=== PATIENT | male | born 1980 | race Caucasian/White ===

== ENCOUNTER 2016-12-21 15:00 | Emergency (ER) | payer BC ==
[2016-12-21 15:07] VITALS: BP 111/66; PULSE 55; TEMP 98.3; BMI 26.6
--- NOTE | 2016-12-21 15:26 | PDOC ---
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 Describes the pain as sharp and feels like muscle with 3/10 severity on original onset. No exacerbating or relieving symptoms. He did not try any medications or heat for this pain. Denies fevers, chills, nausea, vomiting, diarrhea, decreased appetite , or true abdominal pain. Of note he has a baseline swallowing dysfunction for any solid foods that is presumed to be psychological. 12/21/16 15:27 Past History - Past Medical History Allergies/Adverse Reactions: Allergies Allergy/AdvReac Type Severity Reaction Status Date / Time No Known Allergies Allergy Verified 12/21/16 15:04 Home Medications: Ambulatory Orders Ibuprofen [Motrin -] 400 mg PO TID PRN #45 tablet 12/21/16 CVA: Yes (traumatic brain injury) GI Disorders: Yes - Surgical History Neurologic Surgery: Yes (2 craniectomy) - Reproductive History Testicular CA: No Hx Transurethral Resection: No Testicular Surgery: No Testicular Torsion: No - Immunization History Immunization Up to Date: Yes - Suicide/Smoking/Psychosocial Hx Smoking History: Never smoked Have you smoked in the past 12 months: No Hx Alcohol Use: No Substance Use Type: None Hx Substance Use Treatment: No Review of Systems - Review of Systems Constitutional: No: Chills, Fever, Loss of Appetite HEENTM: No: Blurred Vision, Tearing, Recent change in vision Respiratory: No: Cough, Shortness of Breath, Stridor, Wheezing, Productive cough Cardiac (ROS): No: See HPI, Edema ABD/GI: No: Abdominal Distended, Constipated, Diarrhea, Nausea, Vomiting : No: Burning, Dysuria, Discharge Musculoskeletal: No: Back Pain Integumentary: No: Lesions, Lumps Neurological: Yes: Headache *Physical Exam - Vital Signs Last Vital Signs Temp Pulse Resp BP Pulse Ox 98.3 F 55 L 18 111/66 100 12/21/16 15:04 12/21/16 15:04 12/21/16 15:04 12/21/16 15:04 12/21/16 15:04 - Physical Exam General Appearance: Yes: Nourished, Appropriately Dressed. No: Apparent Distress HEENT: positive: EOMI, PAO, Normal ENT Inspection. negative: Normal Voice ( Slightly muffled voice per his baseline.) Neck: positive: Normal Thyroid, Supple. negative: Tender, Trachea midline, Rigid Respiratory/Chest: positive: Lungs Clear, Normal Breath Sounds. negative: Chest Tender, Respiratory Distress Cardiovascular: positive: Regular Rhythm, Regular Rate, S1, S2. negative: Edema , JVD, Murmur Gastrointestinal/Abdominal: positive: Normal Bowel Sounds, Flat, Soft. negative : Tender Male Genitalia: positive: normal genitalia, other (No inguinal lesion or tenderness to palpation. No pain with passive or active motion at the right hip. ). negative: discharge, inguinal hernia, hernia Musculoskeletal: positive: Normal Inspection Extremity: positive: Normal Capillary Refill, Normal Inspection, Normal Range of Motion Integumentary: positive: Normal Color, Dry Neurologic: positive: Fully Oriented, Alert, Normal Mood/Affect, Normal Response , Other Medical Decision Making - Medical Decision Making 36 year old male with history of TBI presenting with right groin pain that is not signficant for TTP or deformity on exam. UA clear and pain better after 60 toradol IM. Will DC patietn home with ibuprofen. 12/21/16 16:49 12/21/16 18:36 *DC/Admit/Observation/Transfer Diagnosis at time of Disposition: Right inguinal pain - Discharge Dispostion Disposition: HOME Condition at time of disposition: Improved Admit: No - Prescriptions Prescriptions: Ibuprofen [Motrin -] 400 mg PO TID PRN #45 tablet PRN Reason: Pain - Patient Instructions Additional Instructions: We saw you for pain in your groin. We don't think you have any infection or hernia. Please take ibuprofen up to twice a day if you have pain. Please follow up with your PCP if needed.
--- NOTE | 2016-12-21 15:40 | PDOC ---
Attending Attestation - Resident Resident Name: Fernanda Soni
[2016-12-21 16:46] LABS: URINE APPEARANCE CLEAR; URINE BILIRUBIN NEGATIVE (NEGATIVE); URINE BLOOD NEGATIVE (NEGATIVE); URINE COLOR STRAW; URINE GLUCOSE (UA) NEGATIVE (NEGATIVE); URINE KETONE NEGATIVE (NEGATIVE); URINE LEUK ESTERASE NEGATIVE (NEGATIVE); URINE NITRITE NEGATIVE (NEGATIVE); URINE PROTEIN NEGATIVE (NEGATIVE); URINE UROBILINOGEN NEGATIVE mg/dL (0.2-1.0)
[2016-12-21] MEDS ORDERED: KETOROLAC TROMETHAMINE 60 MG/2 ML VIAL IM ONE (17:06)
[2016-12-21] MEDS ORDERED: KETOROLAC TROMETHAMINE 60 MG/2 ML VIAL ONE (17:07)
== END 2016-12-21 18:49 | disposition home or self-care (01) ==
LOC: JER 15:00
PROC: 3E0233Z Introduction of Anti-inflammatory into Muscle, Percutaneous Approach (ICD-10-PCS; principal; 2016-12-21)
DX: R10.31 Right lower quadrant pain (principal); Z87.820 Personal history of traumatic brain injury
CPT/HCPCS: 81003; 87086; 99281-25

== ENCOUNTER 2017-07-23 22:04 | Emergency (ER) | payer BC ==
[2017-07-23 22:26] VITALS: BP 111/66; PULSE 85; TEMP 98.5; BMI 26.1
--- NOTE | 2017-07-23 23:08 | PDOC ---
History of Present Illness - General Chief Complaint: Foreign Body (FB) Stated Complaint: FOREIGN OBJECT STUCK IN THROAT Time Seen by Provider: 07/23/17 23:01 History Source: Patient - History of Present Illness Initial Comments: 07/23/17 23:45 37 year old male with dysphagia reports that he drank guava juice unsure of aspiration. reports since drinking juice he has been coughing with mucous production. denies fever Past History - Past Medical History Allergies/Adverse Reactions: Allergies Allergy/AdvReac Type Severity Reaction Status Date / Time No Known Allergies Allergy Verified 07/23/17 22:26 Home Medications: Ambulatory Orders Ibuprofen [Motrin -] 400 mg PO TID PRN #45 tablet 12/21/16 CVA: Yes (traumatic brain injury) COPD: No GI Disorders: Yes (dysphagia) Seizures: Yes - Surgical History Neurologic Surgery: Yes (2 craniectomy) - Reproductive History Testicular CA: No Hx Transurethral Resection: No Testicular Surgery: No Testicular Torsion: No - Immunization History Immunization Up to Date: Yes - Suicide/Smoking/Psychosocial Hx Smoking History: Never smoked Have you smoked in the past 12 months: No Information on smoking cessation initiated: No Hx Alcohol Use: No Drug/Substance Use Hx: No Substance Use Type: None Hx Substance Use Treatment: No Review of Systems - Review of Systems Able to Perform ROS?: Yes Is the patient limited Estonian proficient: No Constitutional: No: Symptoms Reported, See HPI, Chills, Diaphoresis, Fever, Loss of Appetite, Malaise, Night Sweats, Weakness, Weight Stable, Unintentional Wgt. Loss, Unexplained wgt Loss, Other HEENTM: No: Symptoms Reported, See HPI, Eye Pain, Blurred Vision, Tearing, Recent change in vision, Double Vision, Cataracts, Ear Pain, Ocular Prothesis, Ear Discharge, Nose Pain, Nose Congestion, Tinnitus, Nose Bleeding, Hearing Loss , Throat Pain, Throat Swelling, Mouth Pain, Dental Problems, Difficulty Swallowing, Mouth Swelling, Other Respiratory: Yes: Cough, Productive cough *Physical Exam - Vital Signs Last Vital Signs Temp Pulse Resp BP Pulse Ox 98.5 F 85 17 111/66 100 07/23/17 22:22 07/23/17 22:22 07/23/17 22:22 07/23/17 22:22 07/23/17 22:22 - Physical Exam General Appearance: Yes: Appropriately Dressed Respiratory/Chest: positive: Lungs Clear, Normal Breath Sounds Cardiovascular: positive: Regular Rhythm, Regular Rate Gastrointestinal/Abdominal: positive: Normal Bowel Sounds, Soft Musculoskeletal: positive: Normal Inspection Extremity: positive: Normal Capillary Refill, Normal Inspection, Normal Range of Motion Integumentary: positive: Normal Color, Dry, Warm Neurologic: positive: Fully Oriented, Alert ED Treatment Course - RADIOLOGY Chest X-Ray Result: No Infiltrates Medical Decision Making - Medical Decision Making chest congestion r/o aspiration. patient history of dysphagia P: CHEST xray CT chest PMD follow up discussed with patient. *DC/Admit/Observation/Transfer Diagnosis at time of Disposition: Dysphagia Qualifiers: Dysphagia type: unspecified Qualified Code(s): R13.10 - Dysphagia, unspecified - Discharge Dispostion Disposition: HOME - Referrals - Patient Instructions Printed Discharge Instructions: DI for Cough -- Adult Additional Instructions: follow up with your doctor. return to the ER if symptoms worsen. - Post Discharge Activity
--- NOTE | 2017-07-23 23:13 | PDOC ---
*Physical Exam - Vital Signs Last Vital Signs Temp Pulse Resp BP Pulse Ox 98.5 F 85 17 111/66 100 07/23/17 22:22 07/23/17 22:22 07/23/17 22:22 07/23/17 22:22 07/23/17 22:22 Medical Decision Making - Medical Decision Making 07/23/17 23:12 agree with care from TERRELL Yuan *DC/Admit/Observation/Transfer Diagnosis at time of Disposition: Dysphagia - Discharge Dispostion Disposition: HOME - Referrals - Patient Instructions Printed Discharge Instructions: DI for Cough -- Adult Additional Instructions: follow up with your doctor. return to the ER if symptoms worsen. - Post Discharge Activity
== END 2017-07-24 01:56 | disposition home or self-care (01) ==
LOC: JER 22:04
DX: R13.10 Dysphagia, unspecified (principal); Z86.73 Personal history of transient ischemic attack (TIA), and cerebral infarction without residual deficits
CPT/HCPCS: 71046-TC-FY; 71250-TC; 99281-25

== ENCOUNTER 2017-11-13 02:08 | Emergency (ER) | payer BC ==
[2017-11-13 02:34] VITALS: BP 112/62; PULSE 83; TEMP 98; BMI 25.0
[2017-11-13] MEDS ORDERED: IBUPROFEN 100 MG/5 ML UNIT DOSE CUPS PO ONE (02:52)
[2017-11-13] MEDS ORDERED: guaiFENesin/D-METHORPHAN HB 10 ML UNIT-DOSE CUPS PO ONE (02:53)
--- NOTE | 2017-11-13 02:54 | PDOC ---
History of Present Illness - General Chief Complaint: Choking Sensation Stated Complaint: THROAT PROBLEM Time Seen by Provider: 11/13/17 02:31 History Source: Patient Exam Limitations: No Limitations - History of Present Illness Initial Comments: 11/13/17 03:12 Patient is a 37 -year-old male with past medical history of TBI, seizure, who presents to the emergency department today with a choking sensation. Patient states that he feels like he cannot swallow as he has to much mucus. He also admits to a headache. States that he is unable to swallow pills or have solid food for the past 3 years status post seizure. He states he is afraid he is having another seizure. He states he cannot sleep because he is coughing up clear mucus. Denies fevers, chills, shortness of breath, difficulty breathing, chest pain, nausea, vomiting and diarrhea, weakness, dizziness and lightheadedness. Past History - Travel Traveled outside of the country in the last 30 days: No Close contact w/someone who was outside of country & ill: No - Past Medical History Allergies/Adverse Reactions: Allergies Allergy/AdvReac Type Severity Reaction Status Date / Time No Known Allergies Allergy Verified 11/13/17 02:30 Home Medications: Ambulatory Orders Levetiracetam 500 mg PO BID 10/06/17 Guaifenesin Dm [Robitussin Dm -] 10 ml PO Q8H PRN #50 cup 11/13/17 Ibuprofen [Children's Ibuprofen] 600 mg PO Q8H #300 ml 11/13/17 CVA: Yes (traumatic brain injury) COPD: No GI Disorders: Yes (dysphagia) Seizures: Yes - Surgical History Neurologic Surgery: Yes (2 craniectomy) - Reproductive History Testicular CA: No Hx Transurethral Resection: No Testicular Surgery: No Testicular Torsion: No - Immunization History Immunization Up to Date: Yes - Suicide/Smoking/Psychosocial Hx Smoking History: Never smoked Have you smoked in the past 12 months: No Hx Alcohol Use: No Drug/Substance Use Hx: No Substance Use Type: None Hx Substance Use Treatment: No Review of Systems - Review of Systems Able to Perform ROS?: Yes Comments:: 11/13/17 03:09 CONSTITUTIONAL: Absent: fever, chills, diaphoresis, generalized weakness, malaise, loss of appetite HEENT: Present: difficulty swallowing, excess mucous Absent: rhinorrhea, nasal congestion, throat pain, throat swelling, mouth swelling, ear pain, eye pain, visual Changes CARDIOVASCULAR: Absent: chest pain, loss of consciousness, palpitations, irregular heart rate, peripheral edema RESPIRATORY: Absent: cough, shortness of breath, dyspnea with exertion, orthopnea, wheezing, stridor, hemoptysis GASTROINTESTINAL: Absent: abdominal pain, abdominal distension, nausea, vomiting, diarrhea, constipation, melena, hematochezia GENITOURINARY: Absent: dysuria, frequency, urgency, hesitancy, hematuria, flank pain, genital pain MUSCULOSKELETAL: Absent: myalgia, arthralgia, joint swelling SKIN: Absent: rash, itching, pallor HEMATOLOGIC/IMMUNOLOGIC: Absent: easy bleeding, easy bruising, lymphadenopathy, frequent infections ENDOCRINE: Absent: unexplained weight gain, unexplained weight loss, heat intolerance, cold intolerance NEUROLOGIC: Present: headache Absent: focal weakness or paresthesias, dizziness, unsteady gait, seizure, mental status changes, bladder or bowel incontinence PSYCHIATRIC: Absent: anxiety, depression, suicidal or homicidal ideation, hallucinations. Is the patient limited Vietnamese proficient: No *Physical Exam - Vital Signs Last Vital Signs Temp Pulse Resp BP Pulse Ox 98 F 83 18 112/62 99 11/13/17 02:31 11/13/17 02:31 11/13/17 02:31 11/13/17 02:31 11/13/17 02:31 - Physical Exam Comments: 11/13/17 03:10 GENERAL: Well developed, well nourished. Awake and alert. No acute distress. HEENT: Normocephalic, atraumatic. PERRLA, EOMI. No conjunctival pallor. Sclera are non- icteric. Moist mucous membranes. Oropharynx is clear. NECK: Supple. Full ROM. No JVD. Carotid pulses 2+ and symmetric, without bruits. No thyromegaly. No lymphadenopathy. CARDIOVASCULAR: Regular rate and rhythm. No murmurs, rubs, or gallops. Distal pulses are 2+ and symmetric. PULMONARY: No evidence of respiratory distress. Lungs clear to auscultation bilaterally. No wheezing, rales or rhonchi. ABDOMINAL: Soft. Non-tender. Non-distended. No rebound or guarding. No organomegaly. Normoactive bowel sounds. MUSCULOSKELETAL Normal range of motion at all joints. No bony deformities or tenderness. No CVA tenderness. EXTREMITIES: No cyanosis. No clubbing. No edema. No calf tenderness. SKIN: Warm and dry. Normal capillary refill. No rashes. No jaundice. NEUROLOGICAL: Alert, awake, appropriate. Cranial nerves 2-12 intact. No deficits to light touch and temperature in face, upper extremities and lower extremities. No motor deficits in the in face, upper extremities and lower extremities. Normoreflexic in the upper and lower extremities. Normal speech. Toes are down- going bilaterally. Gait is normal without ataxia. PSYCHIATRIC: Cooperative. Good eye contact. Appropriate mood and affect. ED Treatment Course - LABORATORY CBC & Chemistry Diagram: 11/13/17 04:05 11/13/17 04:05 Medical Decision Making - Medical Decision Making 11/13/17 03:12 Patient is a 37-year-old male with past medical history of TBI, seizure on Keppra, who presents to the emergency department today for access mucus and difficulty swallowing. -airway is clear and maintained with no evidence of blockage at this time -mild post nasal drip noted, uvula midline -unlikely food impaction at this time as patient does not eat solid foods -Pt with increased congestion -motrin, robitussin, neck soft tissue x-ray ordered. 11/13/17 03:44 -neck soft tissue with possible swelling to the epiglottis/concerning for retropharyngeal abscess. -labs, ct neck with contrast 11/13/17 06:17 -CT shows no acute process with the epiglottis, jaiden/nasopharynx, parapharyngial spaces. -Pt reports improvement with robitussin -possible viral etiology? -dc home with ENT follow up. Return precautions given. pt and mother understand all dc instructions and all questions were answered. *DC/Admit/Observation/Transfer Diagnosis at time of Disposition: Choking sensation - Discharge Dispostion Disposition: HOME Condition at time of disposition: Stable Decision to Admit order: No - Referrals Referrals: Nikhil Lemus MD [Staff Physician] - - Patient Instructions Printed Discharge Instructions: DI for Oropharyngeal Dysphagia Additional Instructions: Your CAT scan was normal today. Please take the Robitussin twice a day as needed for your congestion. Please follow-up with ears nose throat doctor. Referral has been provided for you. Return to the emergency department if you have worsening symptoms or any new/ concerning symptoms. - Post Discharge Activity Forms/Work/School Notes: Back to Work
[2017-11-13] MEDS ORDERED: guaiFENesin 200 MG/10 ML 10 ML UNIT-DOSE CUPS ONE (04:12)
[2017-11-13] MEDS ORDERED: IBUPROFEN 100 MG/5 ML UNIT DOSE CUPS ONE (04:13)
[2017-11-13 04:18] LABS: BASO % 0.4 % (0-2.0); EOS % 2.9 % (0-4.5); HEMATOCRIT 36.6 % (35.4-49); MCH 32.9 pg (25.7-33.7); MCHC 35.4 g/dl (32.0-35.9); MEAN CELL VOLUME 93.1 fl (80-96); MONO % 9.2 % (3.8-10.2); NEUT % 62.5 % (42.8-82.8); PLATELET COUNT 246 K/MM3 (134-434); RBC 3.93 M/mm3 (4.00-5.60); RDW 12.7 % (11.9-15.9); WHITE BLOOD COUNT 5.4 K/mm3 (4.0-10.0)
[2017-11-13 04:44] LABS: ANION GAP 7 MMOL/L (8-16); BLOOD UREA NITROGEN 4 mg/dL (7-18); CHLORIDE 100 mmol/L (98-107); CO2 30 mmol/L (21-32); CREATININE 0.5 mg/dL (0.7-1.3); GLUCOSE,RANDOM 92 mg/dL (74-106); POTASSIUM 3.6 mmol/L (3.5-5.1); SODIUM 137 mmol/L (136-145)
[2017-11-13] MEDS ORDERED: DEXAMETHASONE SOD PHOSPHATE 10 MG/1 ML VIAL ONE (06:20)
[2017-11-13] MEDS ORDERED: DEXAMETHASONE SOD PHOSPHATE 10 MG/1 ML VIAL IVPUSH ONE (06:23)
== END 2017-11-13 06:26 | disposition home or self-care (01) ==
LOC: JER 02:08
PROC: 3E033GC Introduction of Other Therapeutic Substance into Peripheral Vein, Percutaneous Approach (ICD-10-PCS; principal; 2017-11-13)
DX: R09.89 Other specified symptoms and signs involving the circulatory and respiratory systems (principal)
CPT/HCPCS: 36415; 70360-TC-FY; 70491-TC; 80048; 85025; 99282-25; J1100

== ENCOUNTER 2018-06-06 17:38 | Emergency (ER) | payer BC ==
[2018-06-06 18:05] VITALS: BP 110/58; PULSE 74; TEMP 98.7; BMI 21.6
--- NOTE | 2018-06-06 20:10 | PDOC ---
Attending Attestation - HPI HPI: 06/06/18 21:19 The patient is a 38 year old male, with a significant past medical history of TBI (s/p craniotomy and seizure 2 years ago), RENITA, and dysphagia, who presents to the emergency department with, a choking sensation. Patient notes similar episodes in the past at which time he followed with ENT, Dr. Lemus and received a negative swallow study. He denies any recent fevers, chills, headache or dizziness. He denies any recent nausea, vomit, diarrhea or constipation. He denies any recent chest pain or shortness of breath. He denies any recent dysuria, frequency, urgency or hematuria. Allergies: NKDA <Cristian Hitchcock - Last Filed: 06/06/18 21:19> - Resident Resident Name: Kaleigh Anglin - ED Attending Attestation I have performed the following: I have examined & evaluated the patient, The case was reviewed & discussed with the resident, I agree w/resident's findings & plan, Exceptions are as noted - Physicial Exam PE: GENERAL: Awake, alert, and fully oriented, in no acute distress HEAD: No signs of trauma EYES: PERRLA, EOMI, sclera anicteric, conjunctiva clear ENT: Auricles normal inspection, hearing grossly normal, nares patent, oropharynx erythematous without exudates. Moist mucosa NECK: Normal ROM, supple, no lymphadenopathy, JVD, or masses LUNGS: Breath sounds equal, clear to auscultation bilaterally. No wheezes, and no crackles HEART: Regular rate and rhythm, normal S1 and S2, no murmurs, rubs or gallops ABDOMEN: Soft, nontender, normoactive bowel sounds. No guarding, no rebound. No masses EXTREMITIES: Normal range of motion, no edema. No clubbing or cyanosis. No cords, erythema, or tenderness NEUROLOGICAL: Cranial nerves II through XII grossly intact. Normal speech, normal gait. Motor and sensation intact SKIN: Warm, Dry, normal turgor, no rashes or lesions noted. - Medical Decision Making XR with normal epiglottis. Epiglottitis unlikely given clinical presentation. Stable for DC home. <Kaleigh Cotton - Last Filed: 06/06/18 21:40> Attestations - Attestations 06/06/18 21:20 Documentation prepared by Cristian Hitchcock, acting as medical sales specialist for Kaleigh Cotton MD. <Cristian Hitchcock - Last Filed: 06/06/18 21:19>
[2018-06-06] MEDS ORDERED: IBUPROFEN 100 MG/5 ML UNIT DOSE CUPS PO ONE (20:19)
[2018-06-06] MEDS ORDERED: diphenhydrAMINE HCL 12.5 MG/5 ML UNIT-DOSE CUPS PO ONE (20:20)
[2018-06-06] MEDS ORDERED: MAG HYDROX/AL HYDROX/SIMETH 30 ML UNIT-DOSE CUP PO ONE (20:20)
[2018-06-06] MEDS ORDERED: LIDOCAINE VISCOUS 2% ORAL/TOP 20 ML UNIT-DOSE CUP MM ONE (20:20)
[2018-06-06] MEDS ORDERED: IBUPROFEN 100 MG/5 ML UNIT DOSE CUPS ONE (20:21)
[2018-06-06] MEDS ORDERED: LIDOCAINE VISCOUS 2% ORAL/TOP 20 ML UNIT-DOSE CUP ONE (20:24)
[2018-06-06] MEDS ORDERED: diphenhydrAMINE HCL 12.5 MG/5 ML BULK BOTTLE ONE (20:24)
[2018-06-06] MEDS ORDERED: MAG HYDROX/AL HYDROX/SIMETH 30 ML UNIT-DOSE CUP ONE (20:25)
--- NOTE | 2018-06-06 20:25 | PDOC ---
History of Present Illness - General Chief Complaint: Choking Sensation Stated Complaint: COUGH/CHOCKING SENSATIONS Time Seen by Provider: 06/06/18 19:33 - History of Present Illness Initial Comments: 38yo M with PMH of TBI s/p craniotomy, seizure 2 years ago on Keppra 500 BID, RENITA, and dysphagia presenting with sensation of something stuck in his throat. Patient has had problems with dysphagia for about a year and a half. Per chart review, he has been in our ED three times in the last year with similar complaint. Modified barium swallow study in December 2017 had some suspicion for laryngopharyngeal reflux with globus sensation and suggested a psychologic component to dysphagia. Though it has been recommended for him to transition to eating pureed and even soft foods, patient has adhered to a liquid diet. Patient states he was at [employer] today when he swallowed some soup broth and felt he may have swallowed an herb. He felt some discomfort which worsened when he went home. He coughed and had mucus secretions, along with some nausea and headache. Patient denies sore throat or dysphagia. He has been able to swallow liquids at home without difficulty. However, he still feels discomfort and is worried that he may have aspirated. Patient mentions he had been given some medicine (he does not know what) by his physician at [facility] (he does not remember the name of the doctor) to try to help him transition to solids, but he has not tried it yet. Denies fevers, chills, chest pain, or shortness of breath. Past History - Past Medical History Allergies/Adverse Reactions: Allergies Allergy/AdvReac Type Severity Reaction Status Date / Time No Known Allergies Allergy Verified 06/06/18 18:05 Home Medications: Ambulatory Orders Levetiracetam 500 mg PO BID 10/06/17 Guaifenesin Dm [Robitussin Dm -] 10 ml PO Q8H PRN #50 cup 11/13/17 Ibuprofen [Children's Ibuprofen] 600 mg PO Q8H #300 ml 11/13/17 CVA: Yes (traumatic brain injury) COPD: No GI Disorders: Yes (dysphagia) Seizures: Yes - Surgical History Neurologic Surgery: Yes (2 craniectomy) - Reproductive History Testicular CA: No Hx Transurethral Resection: No Testicular Surgery: No Testicular Torsion: No - Immunization History Immunization Up to Date: Yes - Suicide/Smoking/Psychosocial Hx Smoking History: Never smoked Have you smoked in the past 12 months: No Hx Alcohol Use: No Drug/Substance Use Hx: No Substance Use Type: None Hx Substance Use Treatment: No Review of Systems - Review of Systems Comments:: Constitutional: no fever, no chills HEENT: no throat pain, +globus sensation Respiratory: no cough, no shortness of breath Gastrointestinal: no abdominal pain, +nausea Genitourinary: no dysuria, no frequency Musculoskeletal: no myalgia, no arthralgia Skin: no rash, no itching Neurologic: +headache, no dizziness *Physical Exam - Vital Signs Last Vital Signs Temp Pulse Resp BP Pulse Ox 98.7 F 74 18 110/58 L 97 06/06/18 18:02 06/06/18 18:02 06/06/18 18:02 06/06/18 18:02 06/06/18 18:02 - Physical Exam Comments: General: Awake, alert, and fully oriented, in no acute distress, pleasant Head: No signs of trauma Eyes: EOMI, sclera anicteric ENT: Moist mucus membranes, uvula midline, no masses/abscess in throat appreciated Neck: Normal ROM, supple Lungs: Lungs clear, Normal breath sounds Cardio: Regular rhythm, S1 and S2 present Abdomen: Soft, nontender. No guarding, no rebound, no masses Extremities: Normal range of motion, Distal pulses present SKIN: Warm, Dry, normal turgor Neurologic: Cranial nerves II through XII grossly intact. Normal speech Moderate Sedation - Procedure Monitoring Vital Signs: Procedure Monitoring Vital Signs Temperature 98.7 F 06/06/18 18:02 Pulse Rate 74 06/06/18 18:02 Respiratory Rate 18 06/06/18 18:02 Blood Pressure 110/58 L 06/06/18 18:02 O2 Sat by Pulse Oximetry (%) 97 06/06/18 18:02 ED Treatment Course - RADIOLOGY Radiology Studies Ordered: Category Date Time Status CHEST PA & LAT [RAD] Stat Radiology 06/06/18 20:18 Ordered NECK SOFT TISSUE [RAD] Stat Radiology 06/06/18 20:18 Ordered Medical Decision Making - Medical Decision Making 38yo M with PMH of TBI s/p craniotomy, seizure 2 years ago on Keppra 500 BID, RENITA, and dysphagia presenting with sensation of something stuck in his throat. DDX including but not limited to globus sensation, transport dysphagia, esophageal stricture, foreign body Motrin 600 oral suspension for headache 5mL of equal parts of Diphenhydramine, viscous lidocaine, maalox Soft tissue neck radiograph PA/Lat Chest Will reassess 06/06/18 20:25 Patient says he still feels the discomfort, though it feels better Radiographs without acute pathology (my impression) 06/06/18 21:27 Presentation consistent with globus sensation and patient's previous episodes with dysphagia. He has been observed tolerating po liquid intake without choking or aspiration. Plan to discharge 06/06/18 21:32 *DC/Admit/Observation/Transfer Diagnosis at time of Disposition: Foreign body sensation in throat - Discharge Dispostion Disposition: HOME Condition at time of disposition: Stable - Referrals Referrals: Nikhil Lemus MD [Staff Physician] - - Patient Instructions Printed Discharge Instructions: DI for Esophageal Dysphagia Additional Instructions: You came to the ED for a foreign body sensation in your throat. Imaging of your neck and chest did not show acute pathology. Mixture of benadryl/viscous lidocaine/maalox: Swish and swallow 5mL no more than every four hours as needed for foreign body sensation You can take [id number] tylenol or motrin for your headache. Follow the instructions on the medication bottle. Follow-up with your ENT or primary care physician this week to discuss this ED visit and to further evaluate your headache. Your care is not complete until you do so. Call and make an appointment. Medical attention is required if: you experience persistent symptoms, severe headache, have a seizure, or have focal numbness or weakness. If you think you are having an emergency, call for emergency medical services or present to the emergency department right away - Post Discharge Activity
== END 2018-06-06 21:40 | disposition home or self-care (01) ==
LOC: JER 17:38
DX: R09.89 Other specified symptoms and signs involving the circulatory and respiratory systems (principal); Z87.820 Personal history of traumatic brain injury; R56.1 Post traumatic seizures; R13.10 Dysphagia, unspecified
CPT/HCPCS: 70360-TC-FY; 71046-TC-FY; 99282-25

== ENCOUNTER 2018-08-14 17:02 | Emergency (ER) | payer BC | END 2018-08-14 21:43 | disposition home or self-care (01) | LOC: JER 17:02 ==

== ENCOUNTER 2018-10-04 14:27 | Emergency (ER) | payer BC ==
--- NOTE | 2018-10-04 14:34 | PDOC ---
Rapid Medical Evaluation Chief Complaint: Headache Time Seen by Provider: 10/04/18 14:29 Medical Evaluation: Allergies Allergy/AdvReac Type Severity Reaction Status Date / Time No Known Allergies Allergy Verified 08/14/18 20:40 10/04/18 14:30 I have performed a brief in-person evaluation of this patient. The patient presents with a chief complaint of: h/o alcohol abuse presenting with complains of headache for 3 days. Patient report last alcohol intake was 4 days ago. Pt report mother in [place] had a bad dream about him, so he wants to be sure he is okay. Denies blurry vision, change in vision, SOB, palpitations, dizziness or light headedness. Pt report has been having excessive sweating for 3 days now Pertinent physical exam findings: A&O x 3 in NAD I have ordered the following: nothing The patient will proceed to the ED for further evaluation Discharge Disposition - Diagnosis Headache Qualifiers: Headache type: unspecified Headache chronicity pattern: acute headache Intractability: not intractable Qualified Code(s): R51 - Headache - Discharge Dispostion Condition at time of disposition: Stable - Referrals - Patient Instructions - Post Discharge Activity
[2018-10-04 14:40] VITALS: BP 108/68; PULSE 68; TEMP 98.6; BMI 28.3
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
== END 2018-10-04 16:45 | disposition home or self-care (01) ==
LOC: JERFT 14:27
DX: R51 Headache (principal)
CPT/HCPCS: 70450-TC; 99281-25

== ENCOUNTER 2018-11-22 18:41 | Emergency (ER) | payer BC ==
[2018-11-22 18:51] VITALS: TEMP 98.2; BMI 27.4
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
--- NOTE | 2018-11-22 20:05 | PDOC ---
History of Present Illness - General Chief Complaint: Alcohol intoxication Stated Complaint: ALCOHOL INTOXICATED Time Seen by Provider: 11/22/18 19:47 History Source: Patient Exam Limitations: No Limitations - History of Present Illness Initial Comments: 38 yo M with a hx of TBI 4 years ago s/p craniotomy with residual dysphagia ( liquids only), ETOH abuse, and seizures (1x seizure, currently on keppra) presents to the emergency department s/p found down at home. Per the mother, the fall was unwitnessed. He was found lying on the floor. Per the patient, he does not remember the fall. Denies current pain. Denies nausea, vomiting, headache, visual disturbance, chest pain, SOB, and lightheadedness/dizziness. States he had 1 beer "in the afternoon". Per the mother, he has binging episodes with alcohol but denies other substances. Currently knows his name but does not know the date and place which is unusual per the mother. Allergies: NKDA Shx: Refer to above Past History - Past Medical History Allergies/Adverse Reactions: Allergies Allergy/AdvReac Type Severity Reaction Status Date / Time No Known Allergies Allergy Verified 08/14/18 20:40 Home Medications: Ambulatory Orders Levetiracetam 500 mg PO BID 10/06/17 CVA: Yes (traumatic brain injury) COPD: No GI Disorders: Yes (dysphagia) Seizures: Yes - Surgical History Neurologic Surgery: Yes (2 craniectomy) - Reproductive History Testicular CA: No Hx Transurethral Resection: No Testicular Surgery: No Testicular Torsion: No - Immunization History Immunization Up to Date: Yes - Suicide/Smoking/Psychosocial Hx Smoking History: Never smoked Have you smoked in the past 12 months: No Information on smoking cessation initiated: No Hx Alcohol Use: Yes Drug/Substance Use Hx: No Substance Use Type: None Hx Substance Use Treatment: No *Physical Exam - Vital Signs Last Vital Signs Temp Pulse Resp BP Pulse Ox 98.2 F 86 18 95/62 98 11/22/18 18:42 11/22/18 18:42 11/22/18 18:42 11/22/18 18:42 11/22/18 18:42 ED Treatment Course - LABORATORY CBC & Chemistry Diagram: 11/22/18 20:03 11/22/18 20:03 - RADIOLOGY Radiology Studies Ordered: Category Date Time Status CERVICAL SPINE CT W/O CONTR [CT] Stat CT Scan 11/22/18 19:[address] WITHOUT CONTRAST [CT] Stat CT Scan 11/22/18 19:57 Ordered CHEST PA & LAT [RAD] Stat Radiology 11/22/18 19:57 Ordered *DC/Admit/Observation/Transfer Diagnosis at time of Disposition: Alcohol intoxication - Discharge Dispostion Disposition: HOME Decision to Admit order: No - Referrals Referrals: [facility] [place] [Provider Group] - Patient Instructions Printed Discharge Instructions: DI for Alcohol Abuse Additional Instructions: You were seen for alcohol intoxication. Please do not drink alcohol anymore. Your head ct does not show an acute process. Please return to the emergency department if you have worsening symptoms. Please see your primary medical doctor within 1 week after discharge for follow up care. Thank you. - Post Discharge Activity
[2018-11-22 20:35] LABS: BASO % 0.5 % (0-2.0); EOS % 1.4 % (0-4.5); HEMATOCRIT 35.8 % (35.4-49); HEMOGLOBIN 12.3 GM/dL (11.7-16.9); MCH 34.6 pg (25.7-33.7); MCHC 34.4 g/dl (32.0-35.9); MEAN CELL VOLUME 100.4 fl (80-96); MEAN PLT VOLUME 8.2 fl (7.5-11.1); MONO % 6.7 % (3.8-10.2); NEUT % 80.4 % (42.8-82.8); PLATELET COUNT 299 K/MM3 (134-434); RBC 3.56 M/mm3 (4.00-5.60); RDW 12.9 % (11.9-15.9); WHITE BLOOD COUNT 4.5 K/mm3 (4.0-10.0)
[2018-11-22 21:23] LABS: ALBUMIN 3.5 g/dl (3.4-5.0); BILIRUBIN,TOTAL 0.3 mg/dL (0.2-1); CALCIUM 8.1 mg/dL (8.5-10.1); CREATININE 0.4 mg/dL (0.55-1.3); POTASSIUM 3.4 mmol/L (3.5-5.1)
[2018-11-22 21:25] LABS: BLOOD UREA NITROGEN 1.3 mg/dL (7-18)
[2018-11-22 23:26] VITALS: BP 110/65; PULSE 80
--- NOTE | 2018-11-23 12:43 | EKG ---
Test Reason : Blood Pressure : / mmHG Vent. Rate : 078 BPM Atrial Rate : 078 BPM P-R Int : 120 ms QRS Dur : 092 ms QT Int : 372 ms P-R-T Axes : 021 058 055 degrees QTc Int : 424 ms POOR DATA QUALITY, INTERPRETATION MAY BE ADVERSELY AFFECTED NORMAL SINUS RHYTHM NORMAL ECG NO PREVIOUS ECGS AVAILABLE Confirmed by Tony Combs MD ([id number]) on 11/23/2018 12:43:08 PM Referred By: Confirmed By:Tony Combs MD
== END 2018-11-23 00:05 | disposition home or self-care (01) ==
LOC: JER 18:41
DX: F10.120 Alcohol abuse with intoxication, uncomplicated (principal); Y90.8 Blood alcohol level of 240 mg/100 ml or more; W19.XXXA Unspecified fall, initial encounter; Y93.89 Activity, other specified; Y92.038 Other place in apartment as the place of occurrence of the external cause; G40.909 Epilepsy, unspecified, not intractable, without status epilepticus; Z87.820 Personal history of traumatic brain injury
CPT/HCPCS: 36415; 70450-TC; 71046-TC-FY; 72125-TC; 80053; 80307; 82550; 82553; 84484; 85025; 93005; 93010; 99284-25

== ENCOUNTER 2018-12-13 00:34 | Emergency (ER) | payer BC ==
[2018-12-13 00:53] VITALS: BMI 26.5
[2018-12-13] MEDS ORDERED: FOLIC ACID INJECTION - 1 MG, THIAMINE HCL 100 MG, MULTIVIT INJECTION ADULT 10 ML in SOD... IVPB ONE (01:16)
--- NOTE | 2018-12-13 01:47 | PDOC ---
Attending Attestation - Resident Resident Name: AbbottMaynor - ED Attending Attestation I have performed the following: I have examined & evaluated the patient, The case was reviewed & discussed with the resident, I agree w/resident's findings & plan - HPI HPI: 12/13/18 01:57 Pt is here with alcohol intox; his mom is with him and she states that he is been drinking a lot alcohol recently - Physicial Exam PE: 12/13/18 05:12 Agree with resident exam. - Medical Decision Making 12/13/18 02:48 CXR portable clear; no sign of pneumonia or old aspiration. 12/13/18 05:12 Still slurring his speech 12/13/18 05:13 Pt will be signed out to the day team. Heart Score/ECG Review - ECG Intrepretation Rhythm: Regular Rhythm - [place]: Normal - P and CT Prominent R with upright T in V1 (true posterior KS): No Delta Wave(s) Present: No WPW: No - QRS Poor R Wave Progression: No Q Wave Present: No - ST and T Early Repolarization: No Non Specific ST-T Wave changes: No - ECG Impressions Normal ECG: Yes Non-specific ST Elevation: No Ischemic Changes: No
--- NOTE | 2018-12-13 02:01 | PDOC ---
History of Present Illness - General Chief Complaint: Alcohol intoxication Stated Complaint: INTOX Time Seen by Provider: 12/13/18 01:14 - History of Present Illness Initial Comments: 12/13/18 02:01 38 yo M with a hx of TBI 4 years ago s/p craniotomy with residual dysphagia ( liquids only), ETOH abuse, and seizures (1x seizure, currently on keppra) presents to the emergency department s/p alcohol intoxication. EMS was called by family when they found him difficult to arouse from his drunken stupor. After sufficient arousal, patient volunteers that he only drank 1 shot of tequila. He gently protests that "one of tequila is good for you". Mother at the bedside. Past History - Past Medical History Allergies/Adverse Reactions: Allergies Allergy/AdvReac Type Severity Reaction Status Date / Time No Known Allergies Allergy Verified 12/13/18 00:45 Home Medications: Ambulatory Orders Levetiracetam 500 mg PO BID 10/06/17 CVA: Yes (traumatic brain injury) COPD: No GI Disorders: Yes (dysphagia) Seizures: Yes - Surgical History Neurologic Surgery: Yes (2 craniectomy) - Reproductive History Testicular CA: No Hx Transurethral Resection: No Testicular Surgery: No Testicular Torsion: No - Immunization History Immunization Up to Date: Yes - Suicide/Smoking/Psychosocial Hx Smoking History: Never smoked Have you smoked in the past 12 months: No Hx Alcohol Use: Yes Drug/Substance Use Hx: No Substance Use Type: None Hx Substance Use Treatment: No Review of Systems - Review of Systems Able to Perform ROS?: No (intoxicated.) *Physical Exam - Vital Signs Last Vital Signs Temp Pulse Resp BP Pulse Ox 97.8 F 77 18 125/85 100 12/13/18 00:46 12/13/18 00:46 12/13/18 00:46 12/13/18 00:46 12/13/18 00:46 - Physical Exam General Appearance: Yes: Intoxicated HEENT: positive: EOMI, PAO, Normal ENT Inspection Respiratory/Chest: positive: Lungs Clear, Normal Breath Sounds. negative: Chest Tender, Respiratory Distress Cardiovascular: positive: Regular Rhythm, Regular Rate, S1, S2 Gastrointestinal/Abdominal: positive: Normal Bowel Sounds, Flat, Soft. negative : Tender Extremity: positive: Normal Capillary Refill, Normal Inspection, Normal Range of Motion Neurologic: positive: Disoriented (intoxicated.). negative: Alert ED Treatment Course - RADIOLOGY Radiology Studies Ordered: Category Date Time Status CXRPORT [CHEST X-RAY PORTABLE*] [RAD] Stat Radiology 12/13/18 01:17 Ordered Medical Decision Making - Medical Decision Making 12/13/18 03:40 38 yo M with a hx of TBI 4 years ago s/p craniotomy with residual dysphagia ( liquids only), ETOH abuse, and seizures (1x seizure, currently on keppra) presents to the emergency department s/p alcohol intoxication. Patient will sober up with banana bag and time. Will obtain keppra level. 12/13/18 05:41 Cxr negative, no aspiration pneumonia.
--- NOTE | 2018-12-13 07:42 | PDOC ---
*Physical Exam - Vital Signs Last Vital Signs Temp Pulse Resp BP Pulse Ox 98.1 F 72 15 113/68 100 12/13/18 05:04 12/13/18 05:04 12/13/18 05:04 12/13/18 05:04 12/13/18 05:04 Medical Decision Making - Medical Decision Making I saw this patient with Dr. Griffin. Patient was still displaying signs of minor intoxication but able to ambulate without assistance. Mother at bedside ensured that he was safe to go home with her. I relayed Keppra pending status to mother and discussed alcohol cessation with the patient/ family. Patient is going to take his morning dose of Keppra after discharge. He was ambulatory at discharge. 12/13/18 07:37 *DC/Admit/Observation/Transfer Diagnosis at time of Disposition: Alcohol intoxication Qualifiers: Complication of substance-induced condition: uncomplicated Qualified Code(s): F10.920 - Alcohol use, unspecified with intoxication, uncomplicated - Discharge Dispostion Disposition: HOME Condition at time of disposition: Stable Decision to Admit order: No - Referrals - Patient Instructions Printed Discharge Instructions: DI for Alcohol Abuse Additional Instructions: Please stop drinking alcohol! You will seize and your seizures could be really bad. Please take your medications as directed. Please see your PCP next week. Your [facility] neurologist can call to receive the results of your seizure medication level. Please return if you have any new or worsening symptoms. - Post Discharge Activity
[2018-12-13 07:57] VITALS: BP 125/77; PULSE 73; TEMP 98
--- NOTE | 2018-12-13 10:26 | EKG ---
Test Reason : Blood Pressure : / mmHG Vent. Rate : 070 BPM Atrial Rate : 070 BPM P-R Int : 134 ms QRS Dur : 086 ms QT Int : 370 ms P-R-T Axes : 040 072 055 degrees QTc Int : 399 ms NORMAL SINUS RHYTHM NORMAL ECG WHEN COMPARED WITH ECG OF 22-NOV-2018 21:07, NO SIGNIFICANT CHANGE WAS FOUND Confirmed by CASEY CAMPBELL MD ([id number]) on 12/13/2018 10:26:17 AM Referred By: Confirmed By:CASEY CAMPBELL MD
== END 2018-12-13 08:12 | disposition home or self-care (01) ==
LOC: JER 00:34
PROC: 3E033GC Introduction of Other Therapeutic Substance into Peripheral Vein, Percutaneous Approach (ICD-10-PCS; principal; 2018-12-13)
DX: F10.920 Alcohol use, unspecified with intoxication, uncomplicated (principal); G40.909 Epilepsy, unspecified, not intractable, without status epilepticus; Z87.820 Personal history of traumatic brain injury; I69.891 Dysphagia following other cerebrovascular disease
CPT/HCPCS: 36415; 71045-TC-FY; 80177; 93005; 93010; 99283-25; J7030

== ENCOUNTER 2021-09-20 21:04 | Inpatient (IN) | payer BC ==
[2021-09-20] MEDS ORDERED: ONDANSETRON 4 MG/2 ML VIAL IVPUSH ONE (23:12)
[2021-09-20] MEDS ORDERED: THIAMINE HCL 200 MG/2 ML VIAL IVPB ONE (23:12)
[2021-09-20] MEDS ORDERED: SODIUM CHLORIDE 1,000 ML IV STA (23:12)
[2021-09-20] MEDS ORDERED: diazePAM CARPU-JECT 10 MG/2 ML DISP.SYRIN IVPUSH ONE (23:15)
[2021-09-20] MEDS ORDERED: diazePAM CARPU-JECT 10 MG/2 ML DISP.SYRIN ONE (23:26)
[2021-09-20] MEDS ORDERED: ONDANSETRON 4 MG/2 ML VIAL ONE (23:26)
[2021-09-20] MEDS ORDERED: THIAMINE HCL 200 MG/2 ML VIAL ONE (23:26)
[2021-09-20 23:50] LABS: BASO % 0.2 % (0-2.0); HEMATOCRIT 46.9 % (35.4-49); HEMOGLOBIN 16.3 GM/dL (11.7-16.9); LYMPH % 3.6 % (8-40); MCH 33.9 pg (25.7-33.7); MCHC 34.7 g/dl (32.0-35.9); MEAN CELL VOLUME 97.6 fl (80-96); MEAN PLT VOLUME 8.9 fl (7.5-11.1); MONO % 10.1 % (3.8-10.2); NEUT % 86.1 % (42.8-82.8); PLATELET COUNT 186 10^3/uL (134-434); RBC 4.81 M/mm3 (4.00-5.60); RDW 14.1 % (11.9-15.9); VENOUS BASE EXCESS 3.1 mmol/L (-2-2); VENOUS O2 SATURATION 64.7 % (70-80); VENOUS PCO2 44.3 mmHg (38-52); VENOUS PH 7.421 (7.310-7.410); WHITE BLOOD COUNT 10.2 K/mm3 (4.0-10.0)
[2021-09-21 00:17] LABS: CHLORIDE 88 mmol/L (98-107); MAGNESIUM 2.4 mg/dL (1.8-2.4); SODIUM 130 mmol/L (136-145)
[2021-09-21 00:19] LABS: ALBUMIN 5.2 g/dl (3.4-5.0); ANION GAP 14 MMOL/L (8-16); BLOOD UREA NITROGEN 19.4 mg/dL (7-18); CALCIUM 11.2 mg/dL (8.5-10.1); CO2 29 mmol/L (21-32); GLUCOSE,RANDOM 254 mg/dL (74-106)
[2021-09-21 00:22] LABS: PHOSPHOROUS 1.7 mg/dL (2.5-4.9); SGPT/ALT 141 U/L (13-61)
[2021-09-21 00:23] LABS: SGOT/AST 97 U/L (15-37)
[2021-09-21 00:24] LABS: BILIRUBIN,TOTAL 2.3 mg/dL (0.2-1); TOT PROT 8.9 g/dl (6.4-8.2)
[2021-09-21 00:25] LABS: ALK PHOS 147 U/L (45-117)
[2021-09-21] MEDS ORDERED: SODIUM CHLORIDE 1,000 ML IV STA (00:41)
[2021-09-21] MEDS ORDERED: levETIRAcetam 500 MG TABLET (FP) PO ONE (01:27)
[2021-09-21] MEDS ORDERED: ONDANSETRON 4 MG/2 ML VIAL IVPUSH PRN (03:10)
[2021-09-21] MEDS ORDERED: LACTATED RINGERS SOLUTION 1,000 ML/1,000 ML INFUS.BAG IV SCH (03:15)
[2021-09-21] MEDS ORDERED: FOLIC ACID 1 MG TABLET (FP) PO ONE (03:16)
[2021-09-21] MEDS ORDERED: LORazepam 1 MG TABLET PO PRN (03:26)
[2021-09-21] MEDS: LORazepam 1 MG TABLET PO SCH ×4 (04:40→22:01)
[2021-09-21] MEDS: HEPARIN NA (PORCINE) 5,000 UNITS/ML 1ML VIAL SQ SCH ×3 (05:44→21:48)
[2021-09-21] MEDS: INSULIN SLIDING SCALE (NOVOLOG) 1 VIAL SQ SCH ×4 (06:23→22:00)
[2021-09-21] MEDS: FOLIC ACID 1 MG TABLET (FP) PO SCH (09:33)
[2021-09-21] MEDS: THIAMINE HCL 100 MG TABLET (FP) PO SCH (09:33)
[2021-09-21] MEDS: levETIRAcetam 500 MG/5 ML INJECTION VIAL IVPB SCH ×2 (09:33→21:48)
[2021-09-21] MEDS ORDERED: SODIUM PHOSPHATE - 30 MM in SODIUM CHLORIDE 500 ML IVPB ONE (09:45)
[2021-09-21] MEDS ORDERED: NAPH,MB-DB/K PH,MBDB POWDER PACKET PO ONE ×2 (10:00)
[2021-09-21 12:25] LABS: BASO % 0.3 % (0-2.0); EOS % 0.6 % (0-4.5); HEMATOCRIT 39.6 % (35.4-49); HEMOGLOBIN 13.7 GM/dL (11.7-16.9); LYMPH % 11.6 % (8-40); MCH 33.9 pg (25.7-33.7); MCHC 34.6 g/dl (32.0-35.9); MEAN CELL VOLUME 98.1 fl (80-96); MEAN PLT VOLUME 9.7 fl (7.5-11.1); MONO % 10.5 % (3.8-10.2); PLATELET COUNT 144 10^3/uL (134-434); RBC 4.04 M/mm3 (4.00-5.60); RDW 13.7 % (11.9-15.9); WHITE BLOOD COUNT 5.4 K/mm3 (4.0-10.0)
[2021-09-21 12:36] LABS: ACTIVATED PTT 27.7 SECONDS (25.2-36.5); INR 1.07 (0.83-1.09); PROTHROMBIN TIME (PATIENT) 12.3 SEC (9.7-13.0)
[2021-09-21 12:49] LABS: CREATININE 0.9 mg/dL (0.55-1.3); PHOSPHOROUS 2.2 mg/dL (2.5-4.9)
[2021-09-21 12:51] LABS: BILIRUBIN,TOTAL 2.2 mg/dL (0.2-1); TOT PROT 7.3 g/dl (6.4-8.2)
[2021-09-21 12:55] LABS: CALCIUM 9.1 mg/dL (8.5-10.1)
[2021-09-22] MEDS: LORazepam 1 MG TABLET PO SCH ×4 (05:46→22:48)
[2021-09-22] MEDS: HEPARIN NA (PORCINE) 5,000 UNITS/ML 1ML VIAL SQ SCH ×3 (05:47→22:49)
[2021-09-22] MEDS: INSULIN SLIDING SCALE (NOVOLOG) 1 VIAL SQ SCH ×4 (06:16→22:51)
[2021-09-22] MEDS: THIAMINE HCL 100 MG TABLET (FP) PO SCH (09:58)
[2021-09-22] MEDS: FOLIC ACID 1 MG TABLET (FP) PO SCH (09:58)
[2021-09-22] MEDS: levETIRAcetam 500 MG/5 ML INJECTION VIAL IVPB SCH ×2 (09:58→22:45)
[2021-09-22 10:13] LABS: URINE APPEARANCE CLEAR; URINE BILIRUBIN NEGATIVE (NEGATIVE); URINE COLOR YELLOW; URINE GLUCOSE (UA) 3+ (NEGATIVE); URINE KETONE 1+ (NEGATIVE); URINE LEUK ESTERASE NEGATIVE (NEGATIVE); URINE NITRITE NEGATIVE (NEGATIVE); URINE PROTEIN TRACE (NEGATIVE)
[2021-09-22 10:28] LABS: ALBUMIN 3.4 g/dl (3.4-5.0); BLOOD UREA NITROGEN 12.5 mg/dL (7-18); CALCIUM 9.2 mg/dL (8.5-10.1); MAGNESIUM 1.8 mg/dL (1.8-2.4)
[2021-09-22 10:31] LABS: CREATININE 0.6 mg/dL (0.55-1.3)
[2021-09-22 10:33] LABS: BILIRUBIN,TOTAL 1.7 mg/dL (0.2-1); TOT PROT 6.4 g/dl (6.4-8.2)
[2021-09-22] MEDS ORDERED: LACTATED RINGERS SOLUTION 1,000 ML/1,000 ML INFUS.BAG IV SCH (11:15)
[2021-09-22] MEDS: POTASSIUM CHLORIDE TABS 20 MEQ TABLET.ER (FP) PO SCH ×2 (14:32→22:49)
[2021-09-22] MEDS ORDERED: POTASSIUM CHLORIDE TABS 20 MEQ TABLET.ER (FP) PO ONE (19:39)
[2021-09-23] MEDS ORDERED: LORazepam 0.5 MG TABLET PO PRN
[2021-09-23] MEDS: LORazepam 0.5 MG TABLET PO SCH ×4 (04:12→22:28)
[2021-09-23] MEDS: HEPARIN NA (PORCINE) 5,000 UNITS/ML 1ML VIAL SQ SCH (06:36)
[2021-09-23] MEDS: INSULIN SLIDING SCALE (NOVOLOG) 1 VIAL SQ SCH ×4 (06:38→22:29)
[2021-09-23 09:47] LABS: BASO % 0.7 % (0-2.0); EOS % 4.9 % (0-4.5); HEMATOCRIT 39.4 % (35.4-49); HEMOGLOBIN 13.6 GM/dL (11.7-16.9); LYMPH % 20.2 % (8-40); MCH 34.2 pg (25.7-33.7); MCHC 34.5 g/dl (32.0-35.9); MEAN CELL VOLUME 99.2 fl (80-96); MONO % 14.2 % (3.8-10.2); PLATELET COUNT 207 10^3/uL (134-434); RBC 3.98 M/mm3 (4.00-5.60); RDW 13.3 % (11.9-15.9); WHITE BLOOD COUNT 3.4 K/mm3 (4.0-10.0)
[2021-09-23] MEDS: POTASSIUM CHLORIDE TABS 20 MEQ TABLET.ER (FP) PO SCH ×2 (09:59→22:28)
[2021-09-23] MEDS: levETIRAcetam 500 MG/5 ML INJECTION VIAL IVPB SCH ×2 (09:59→22:28)
[2021-09-23] MEDS: FOLIC ACID 1 MG TABLET (FP) PO SCH (09:59)
[2021-09-23] MEDS: THIAMINE HCL 100 MG TABLET (FP) PO SCH (10:00)
[2021-09-23 10:14] LABS: ALBUMIN 3.6 g/dl (3.4-5.0); BLOOD UREA NITROGEN 12.4 mg/dL (7-18); CALCIUM 9.2 mg/dL (8.5-10.1); MAGNESIUM 1.6 mg/dL (1.8-2.4)
[2021-09-23 10:17] LABS: CREATININE 0.6 mg/dL (0.55-1.3); PHOSPHOROUS 2.7 mg/dL (2.5-4.9)
[2021-09-23 10:19] LABS: BILIRUBIN,TOTAL 1.2 mg/dL (0.2-1)
[2021-09-23 10:22] LABS: TOT PROT 6.8 g/dl (6.4-8.2)
[2021-09-23 12:05] VITALS: BMI 29.3
[2021-09-23] MEDS ORDERED: MAGNESIUM SULF 50% (8.12 MEQ/2 ML-1 GM VIAL) IVPB ONE (12:21)
[2021-09-24] MEDS ORDERED: LORazepam 0.5 MG TABLET PO ONE (05:00)
[2021-09-24] MEDS: INSULIN SLIDING SCALE (NOVOLOG) 1 VIAL SQ SCH ×4 (06:03→22:19)
[2021-09-24] MEDS: levETIRAcetam 500 MG/5 ML INJECTION VIAL IVPB SCH ×2 (09:44→22:15)
[2021-09-24] MEDS: FOLIC ACID 1 MG TABLET (FP) PO SCH (09:52)
[2021-09-24] MEDS: POTASSIUM CHLORIDE TABS 20 MEQ TABLET.ER (FP) PO SCH ×2 (09:52→22:15)
[2021-09-24] MEDS: ENOXAPARIN NA (PORCINE) 40 MG/0.4 ML DISP.SYRIN SQ SCH (09:52)
[2021-09-24] MEDS: THIAMINE HCL 100 MG TABLET (FP) PO SCH (09:53)
[2021-09-24 12:45] LABS: BASO % 0.9 % (0-2.0); EOS % 4.2 % (0-4.5); HEMATOCRIT 38.6 % (35.4-49); HEMOGLOBIN 13.4 GM/dL (11.7-16.9); LYMPH % 25.3 % (8-40); MCH 34.3 pg (25.7-33.7); MCHC 34.8 g/dl (32.0-35.9); MEAN CELL VOLUME 98.5 fl (80-96); MEAN PLT VOLUME 8.7 fl (7.5-11.1); MONO % 17.8 % (3.8-10.2); NEUT % 51.8 % (42.8-82.8); PLATELET COUNT 243 10^3/uL (134-434); RBC 3.92 M/mm3 (4.00-5.60); RDW 13.6 % (11.9-15.9)
[2021-09-24 13:27] LABS: CALCIUM 9.2 mg/dL (8.5-10.1)
[2021-09-24 13:28] LABS: ALBUMIN 3.9 g/dl (3.4-5.0); BLOOD UREA NITROGEN 11.3 mg/dL (7-18)
[2021-09-24 13:30] LABS: BILIRUBIN,DIRECT 0.5 mg/dL (0.0-0.2)
[2021-09-24 13:31] LABS: CREATININE 0.5 mg/dL (0.55-1.3)
[2021-09-24 13:32] LABS: BILIRUBIN,TOTAL 0.9 mg/dL (0.2-1); TOT PROT 7.1 g/dl (6.4-8.2)
[2021-09-25] MEDS: INSULIN SLIDING SCALE (NOVOLOG) 1 VIAL SQ SCH ×4 (06:29→22:38)
[2021-09-25 08:57] LABS: BASO % 0.6 % (0-2.0); EOS % 3.9 % (0-4.5); HEMATOCRIT 37.2 % (35.4-49); HEMOGLOBIN 12.7 GM/dL (11.7-16.9); LYMPH % 28.4 % (8-40); MCH 33.9 pg (25.7-33.7); MEAN CELL VOLUME 99.4 fl (80-96); MEAN PLT VOLUME 8.6 fl (7.5-11.1); MONO % 17.1 % (3.8-10.2); PLATELET COUNT 245 10^3/uL (134-434); RBC 3.74 M/mm3 (4.00-5.60); RDW 13.5 % (11.9-15.9); WHITE BLOOD COUNT 3.7 K/mm3 (4.0-10.0)
[2021-09-25 09:22] LABS: ALBUMIN 3.4 g/dl (3.4-5.0); BLOOD UREA NITROGEN 8.8 mg/dL (7-18); CALCIUM 9.1 mg/dL (8.5-10.1)
[2021-09-25 09:25] LABS: CREATININE 0.5 mg/dL (0.55-1.3); PHOSPHOROUS 3.6 mg/dL (2.5-4.9); TOT PROT 6.3 g/dl (6.4-8.2)
[2021-09-25 09:27] LABS: BILIRUBIN,TOTAL 0.8 mg/dL (0.2-1)
[2021-09-25] MEDS: ENOXAPARIN NA (PORCINE) 40 MG/0.4 ML DISP.SYRIN SQ SCH (10:17)
[2021-09-25] MEDS: levETIRAcetam 500 MG/5 ML INJECTION VIAL IVPB SCH ×2 (10:17→22:32)
[2021-09-25] MEDS: POTASSIUM CHLORIDE TABS 20 MEQ TABLET.ER (FP) PO SCH ×2 (10:18→22:32)
[2021-09-25] MEDS: THIAMINE HCL 100 MG TABLET (FP) PO SCH (10:18)
[2021-09-25] MEDS: FOLIC ACID 1 MG TABLET (FP) PO SCH (10:18)
[2021-09-25 22:02] LABS: EPI CELLS 5 /uL (0-25.1); HYALINE CASTS 1 /uL (0-3.1); URINE APPEARANCE CLEAR; URINE BACTERIA 11 /uL (0-1359); URINE BILIRUBIN NEGATIVE (NEGATIVE); URINE COLOR YELLOW; URINE GLUCOSE (UA) 2+ (NEGATIVE); URINE KETONE 1+ (NEGATIVE); URINE LEUK ESTERASE NEGATIVE (NEGATIVE); URINE NITRITE NEGATIVE (NEGATIVE); URINE PROTEIN 1+ (NEGATIVE); URINE RBC 250 /uL (0-23.9); URINE UROBILINOGEN 0.2 mg/dL (0.2-1.0); URINE WBC 3 /uL (0-25.8)
[2021-09-25] MEDS: FINASTERIDE 5 MG TABLET (FP) PO SCH (22:32)
[2021-09-25] MEDS: TAMSULOSIN HCL 0.4 MG CAP PO SCH (22:32)
[2021-09-26] MEDS: INSULIN SLIDING SCALE (NOVOLOG) 1 VIAL SQ SCH ×4 (07:29→22:49)
[2021-09-26 08:29] LABS: BASO % 0.5 % (0-2.0); EOS % 2.3 % (0-4.5); HEMATOCRIT 38.1 % (35.4-49); HEMOGLOBIN 13.3 GM/dL (11.7-16.9); LYMPH % 22.2 % (8-40); MCH 34.4 pg (25.7-33.7); MCHC 34.9 g/dl (32.0-35.9); MEAN CELL VOLUME 98.5 fl (80-96); MONO % 19.2 % (3.8-10.2); NEUT % 55.8 % (42.8-82.8); PLATELET COUNT 253 10^3/uL (134-434); RBC 3.87 M/mm3 (4.00-5.60); RDW 13.3 % (11.9-15.9); WHITE BLOOD COUNT 4.8 K/mm3 (4.0-10.0)
[2021-09-26] MEDS ORDERED: TAMSULOSIN HCL 0.4 MG CAP PO SCH ×2 (08:30→17:02)
[2021-09-26 08:53] LABS: ALBUMIN 3.6 g/dl (3.4-5.0); CALCIUM 9.3 mg/dL (8.5-10.1)
[2021-09-26 08:54] LABS: BLOOD UREA NITROGEN 6.4 mg/dL (7-18); MAGNESIUM 2.2 mg/dL (1.8-2.4)
[2021-09-26 08:57] LABS: CREATININE 0.6 mg/dL (0.55-1.3); PHOSPHOROUS 3.8 mg/dL (2.5-4.9)
[2021-09-26 08:58] LABS: TOT PROT 6.7 g/dl (6.4-8.2)
[2021-09-26] MEDS: TAMSULOSIN HCL 0.4 MG CAP PO SCH ×2 (10:44→21:59)
[2021-09-26] MEDS: POTASSIUM CHLORIDE TABS 20 MEQ TABLET.ER (FP) PO SCH ×2 (10:44→21:59)
[2021-09-26] MEDS: ENOXAPARIN NA (PORCINE) 40 MG/0.4 ML DISP.SYRIN SQ SCH (10:44)
[2021-09-26] MEDS: levETIRAcetam 500 MG/5 ML INJECTION VIAL IVPB SCH ×2 (10:44→21:59)
[2021-09-26] MEDS: FOLIC ACID 1 MG TABLET (FP) PO SCH (10:44)
[2021-09-26] MEDS: THIAMINE HCL 100 MG TABLET (FP) PO SCH (10:44)
[2021-09-26] MEDS: FINASTERIDE 5 MG TABLET (FP) PO SCH (21:59)
[2021-09-27] MEDS: INSULIN SLIDING SCALE (NOVOLOG) 1 VIAL SQ SCH ×3 (07:39→16:47)
[2021-09-27] MEDS: TAMSULOSIN HCL 0.4 MG CAP PO SCH (09:26)
[2021-09-27] MEDS: levETIRAcetam 500 MG/5 ML INJECTION VIAL IVPB SCH (09:26)
[2021-09-27] MEDS: FOLIC ACID 1 MG TABLET (FP) PO SCH (09:27)
[2021-09-27] MEDS: ENOXAPARIN NA (PORCINE) 40 MG/0.4 ML DISP.SYRIN SQ SCH (09:27)
[2021-09-27] MEDS: POTASSIUM CHLORIDE TABS 20 MEQ TABLET.ER (FP) PO SCH (09:27)
[2021-09-27] MEDS: THIAMINE HCL 100 MG TABLET (FP) PO SCH (09:27)
[2021-09-27 11:45] LABS: BLOOD UREA NITROGEN 11.3 mg/dL (7-18)
[2021-09-27 11:46] LABS: BILIRUBIN,TOTAL 0.9 mg/dL (0.2-1); TOT PROT 7.1 g/dl (6.4-8.2)
[2021-09-27 11:47] LABS: CREATININE 0.7 mg/dL (0.55-1.3)
[2021-09-27 11:48] LABS: CALCIUM 9.1 mg/dL (8.5-10.1)
[2021-09-27 15:00] VITALS: BP 156/69; PULSE 92; TEMP 97.3
== END 2021-09-27 19:25 | disposition home or self-care (01) | DRG 897 ==
LOC: JER 21:04 → JERBED 09-21 02:31 → J7W 09-21 03:48
PROVIDERS: ADMIT Internal Medicine; ATTEND Internal Medicine
PROC: HZ2ZZZZ Detoxification Services for Substance Abuse Treatment (ICD-10-PCS; principal; 2021-09-20)
DX: F10.239 Alcohol dependence with withdrawal, unspecified (principal); N17.9 Acute kidney failure, unspecified; E87.1 Hypo-osmolality and hyponatremia; N13.30 Unspecified hydronephrosis; E86.0 Dehydration; R74.01 Elevation of levels of liver transaminase levels; R33.9 Retention of urine, unspecified; E11.9 Type 2 diabetes mellitus without complications
CPT/HCPCS: 0241U-QW; 36415; 71046-TC-FY; 76700-TC; 76775-TC; 76856-TC; 80048; 80053; 80076; 80307; 81003; 82010; 82140; 82436; 82550; 82570; 82803; 82962; 83690; 83735; 83970; 84100; 84300; 84540; 85025; 85610; 85730; 86704; 86705; 86803; 87340; 87517; 93005; 93010; 99285-25; J1644

== ENCOUNTER 2022-03-21 23:33 | Inpatient (IN) | payer BC ==
[2022-03-22 02:31] LABS: BASO % 0.4 % (0-2.0); EOS % 1.9 % (0-4.5); HEMATOCRIT 37.4 % (35.4-49); HEMOGLOBIN 12.3 GM/dL (11.7-16.9); LYMPH % 6.5 % (8-40); MCH 34.5 pg (25.7-33.7); MCHC 32.8 g/dl (32.0-35.9); MEAN CELL VOLUME 105.4 fl (80-96); MEAN PLT VOLUME 8.4 fl (7.5-11.1); MONO % 6.9 % (3.8-10.2); NEUT % 84.3 % (42.8-82.8); PLATELET COUNT 169 10^3/uL (134-434); RBC 3.55 M/mm3 (4.00-5.60); RDW 14.5 % (11.9-15.9); WHITE BLOOD COUNT 11.4 K/mm3 (4.0-10.0)
[2022-03-22 02:40] LABS: INR 1.93 (0.83-1.09); PROTHROMBIN TIME (PATIENT) 22.4 SEC (9.7-13.0)
[2022-03-22 02:43] LABS: ACTIVATED PTT 48.9 SECONDS (25.2-36.5)
[2022-03-22 02:51] LABS: ALBUMIN 2.6 g/dl (3.4-5.0); BLOOD UREA NITROGEN 5.2 mg/dL (7-18); CALCIUM 8.4 mg/dL (8.5-10.1)
[2022-03-22 02:53] LABS: BILIRUBIN,DIRECT 1.6 mg/dL (0.0-0.2); CREATININE 0.8 mg/dL (0.55-1.3)
[2022-03-22] MEDS ORDERED: POTASSIUM CHLORIDE TABS 20 MEQ TABLET.ER (FP) PO ONE ×2 (02:54→03:46)
[2022-03-22 02:55] LABS: BILIRUBIN,TOTAL 2.7 mg/dL (0.2-1); TOT PROT 7.1 g/dl (6.4-8.2)
[2022-03-22 03:21] LABS: EPI CELLS 4 /uL (0-25.1); HYALINE CASTS 3 /uL (0-3.1); URINE APPEARANCE TURBID; URINE BACTERIA >9,000 /uL (0-1359); URINE BILIRUBIN 2+ (NEGATIVE); URINE COLOR ORANGE; URINE GLUCOSE (UA) NEGATIVE (NEGATIVE); URINE KETONE TRACE (NEGATIVE); URINE LEUK ESTERASE 3+ (NEGATIVE); URINE NITRITE POSITIVE (NEGATIVE); URINE PROTEIN 1+ (NEGATIVE); URINE WBC 2158 /uL (0-25.8)
[2022-03-22] MEDS ORDERED: CEFTRIAXONE 1 GM in DEXTROSE 5%-WATER - 50 ML IVPB ONE (03:22)
[2022-03-22 03:33] LABS: ANISOCYTOSIS 1+; MACROCYTOSIS 0
[2022-03-22] MEDS ORDERED: CEFTRIAXONE 1 GM/50 ML BAG ONE ×2 (03:47→09:31)
[2022-03-22] MEDS ORDERED: LORazepam 2 MG/ML SDV VIAL IVPUSH PRN (05:45)
[2022-03-22] MEDS ORDERED: FOLIC ACID 1 MG TABLET (FP) PO ONE (05:46)
[2022-03-22 06:52] LABS: MAGNESIUM 1.5 mg/dL (1.8-2.4)
[2022-03-22 07:25] LABS: URINE CRYSTALS NONE SEEN /hpf; URINE RBC 74.6 /uL (0-23.9); YEAST NONE SEEN (NEGATIVE)
[2022-03-22] MEDS: INSULIN SLIDING SCALE (NOVOLOG) 1 VIAL SQ SCH ×4 (08:55→22:30)
[2022-03-22] MEDS ORDERED: THIAMINE HCL 100 MG TABLET (FP) ONE (09:30)
[2022-03-22] MEDS ORDERED: FOLIC ACID 1 MG TABLET (FP) ONE (09:30)
[2022-03-22] MEDS ORDERED: levETIRAcetam 500 MG TABLET (FP) PO ONE (09:30)
[2022-03-22] MEDS ORDERED: TAMSULOSIN HCL 0.4 MG CAP ONE (09:31)
[2022-03-22] MEDS ORDERED: ENOXAPARIN NA (PORCINE) 40 MG/0.4 ML DISP.SYRIN SQ ONE ×2 (09:31)
[2022-03-22] MEDS ORDERED: MULTIVITAMINS (DAILY MVI) TABLET (FP) ONE (09:31)
[2022-03-22] MEDS: ENOXAPARIN NA (PORCINE) 40 MG/0.4 ML DISP.SYRIN SQ SCH (09:39)
[2022-03-22] MEDS: CEFTRIAXONE 1 GM in DEXTROSE 5%-WATER - 50 ML IVPB SCH (09:40)
[2022-03-22] MEDS: THIAMINE HCL 100 MG TABLET (FP) PO SCH (09:41)
[2022-03-22] MEDS: TAMSULOSIN HCL 0.4 MG CAP PO SCH ×3 (09:41→22:24)
[2022-03-22] MEDS: levETIRAcetam 500 MG TABLET (FP) PO SCH ×3 (09:41→22:24)
[2022-03-22] MEDS: MULTIVITAMINS (DAILY MVI) TABLET (FP) PO SCH (09:41)
[2022-03-22] MEDS ORDERED: MAGNESIUM OXIDE 400 MG TABLET (FP) PO ONE (10:21)
[2022-03-22] MEDS ORDERED: SPIRONOLACTONE 25 MG TABLET ONE (13:13)
[2022-03-22] MEDS ORDERED: MAGNESIUM OXIDE 400 MG TABLET (FP) ONE (13:13)
[2022-03-22] MEDS ORDERED: FUROSEMIDE 40 MG/4 ML INJECTABLE VIAL ONE (13:13)
[2022-03-22] MEDS: SPIRONOLACTONE 25 MG TABLET PO SCH (13:20)
[2022-03-22] MEDS: FUROSEMIDE 40 MG/4 ML INJECTABLE VIAL IVPUSH SCH (14:03)
[2022-03-22 17:32] LABS: ALBUMIN 2.2 g/dl (3.4-5.0); BLOOD UREA NITROGEN 4.6 mg/dL (7-18)
[2022-03-22 17:35] LABS: CREATININE 0.8 mg/dL (0.55-1.3)
[2022-03-22 17:37] LABS: BILIRUBIN,TOTAL 2.5 mg/dL (0.2-1)
[2022-03-22] MEDS ORDERED: levETIRAcetam 250 MG TABLET PO ONE (22:07)
[2022-03-22] MEDS: chlordiazePOXIDE HCL 25 MG CAPSULE PO SCH (22:22)
[2022-03-22] MEDS: FINASTERIDE 5 MG TABLET (FP) PO SCH (22:24)
[2022-03-23] MEDS: chlordiazePOXIDE HCL 25 MG CAPSULE PO SCH ×3 (06:50→22:11)
[2022-03-23] MEDS: INSULIN SLIDING SCALE (NOVOLOG) 1 VIAL SQ SCH ×3 (06:54→17:08)
[2022-03-23 10:11] LABS: INR 1.53 (0.83-1.09); PROTHROMBIN TIME (PATIENT) 17.7 SEC (9.7-13.0)
[2022-03-23 10:13] LABS: BASO % 0.6 % (0-2.0); EOS % 2.2 % (0-4.5); HEMATOCRIT 29.4 % (35.4-49); HEMOGLOBIN 9.7 GM/dL (11.7-16.9); LYMPH % 9.7 % (8-40); MCH 34.9 pg (25.7-33.7); MCHC 33.2 g/dl (32.0-35.9); MEAN CELL VOLUME 105.2 fl (80-96); MEAN PLT VOLUME 9.1 fl (7.5-11.1); MONO % 10.8 % (3.8-10.2); NEUT % 76.7 % (42.8-82.8); PLATELET COUNT 112 10^3/uL (134-434); RBC 2.79 M/mm3 (4.00-5.60); RDW 14.1 % (11.9-15.9); WHITE BLOOD COUNT 8.3 K/mm3 (4.0-10.0)
[2022-03-23 10:42] LABS: MAGNESIUM 1.6 mg/dL (1.8-2.4)
[2022-03-23 10:45] LABS: PHOSPHOROUS 1.7 mg/dL (2.5-4.9)
[2022-03-23] MEDS: CEFTRIAXONE 1 GM in DEXTROSE 5%-WATER - 50 ML IVPB SCH (10:57)
[2022-03-23] MEDS: FUROSEMIDE 40 MG/4 ML INJECTABLE VIAL IVPUSH SCH (10:58)
[2022-03-23] MEDS: THIAMINE HCL 100 MG TABLET (FP) PO SCH (10:58)
[2022-03-23] MEDS: SPIRONOLACTONE 25 MG TABLET PO SCH (10:58)
[2022-03-23] MEDS: levETIRAcetam 500 MG TABLET (FP) PO SCH ×2 (10:58→22:11)
[2022-03-23] MEDS: ENOXAPARIN NA (PORCINE) 40 MG/0.4 ML DISP.SYRIN SQ SCH (10:58)
[2022-03-23] MEDS: MULTIVITAMINS (DAILY MVI) TABLET (FP) PO SCH (10:58)
[2022-03-23] MEDS: TAMSULOSIN HCL 0.4 MG CAP PO SCH ×2 (11:20→22:13)
[2022-03-23] MEDS: NAPH,MB-DB/K PH,MBDB POWDER PACKET PO SCH ×2 (17:04→22:13)
[2022-03-23] MEDS: MAGNESIUM OXIDE 400 MG TABLET (FP) PO SCH ×2 (17:04→22:12)
[2022-03-23] MEDS: FINASTERIDE 5 MG TABLET (FP) PO SCH (22:13)
[2022-03-24] MEDS: INSULIN SLIDING SCALE (NOVOLOG) 1 VIAL SQ SCH ×5 (00:26→23:11)
[2022-03-24] MEDS: NAPH,MB-DB/K PH,MBDB POWDER PACKET PO SCH ×3 (06:38→21:27)
[2022-03-24] MEDS: chlordiazePOXIDE HCL 25 MG CAPSULE PO SCH ×3 (06:38→21:26)
[2022-03-24] MEDS: ENOXAPARIN NA (PORCINE) 40 MG/0.4 ML DISP.SYRIN SQ SCH (10:16)
[2022-03-24] MEDS: MULTIVITAMINS (DAILY MVI) TABLET (FP) PO SCH (10:16)
[2022-03-24] MEDS: TAMSULOSIN HCL 0.4 MG CAP PO SCH ×2 (10:16→21:27)
[2022-03-24] MEDS: FUROSEMIDE 40 MG/4 ML INJECTABLE VIAL IVPUSH SCH (10:16)
[2022-03-24] MEDS: levETIRAcetam 500 MG TABLET (FP) PO SCH ×2 (10:16→21:26)
[2022-03-24] MEDS: THIAMINE HCL 100 MG TABLET (FP) PO SCH (10:17)
[2022-03-24] MEDS: SPIRONOLACTONE 25 MG TABLET PO SCH (10:17)
[2022-03-24] MEDS: CEFTRIAXONE 1 GM in DEXTROSE 5%-WATER - 50 ML IVPB SCH (10:29)
[2022-03-24 11:12] LABS: BASO % 0.4 % (0-2.0); EOS % 1.6 % (0-4.5); HEMATOCRIT 36.9 % (35.4-49); HEMOGLOBIN 12.5 GM/dL (11.7-16.9); LYMPH % 4.9 % (8-40); MCH 35.5 pg (25.7-33.7); MEAN CELL VOLUME 104.4 fl (80-96); MONO % 8.7 % (3.8-10.2); NEUT % 84.4 % (42.8-82.8); PLATELET COUNT 141 10^3/uL (134-434); RBC 3.53 M/mm3 (4.00-5.60); RDW 14.1 % (11.9-15.9); WHITE BLOOD COUNT 10.5 K/mm3 (4.0-10.0)
[2022-03-24 11:16] LABS: INR 1.83 (0.83-1.09); PROTHROMBIN TIME (PATIENT) 21.2 SEC (9.7-13.0)
[2022-03-24 11:26] VITALS: BMI 24.5
[2022-03-24 11:42] LABS: ALBUMIN 2.3 g/dl (3.4-5.0); CALCIUM 8.2 mg/dL (8.5-10.1); MAGNESIUM 1.8 mg/dL (1.8-2.4)
[2022-03-24 11:43] LABS: BLOOD UREA NITROGEN 6.7 mg/dL (7-18)
[2022-03-24 11:45] LABS: CREATININE 0.6 mg/dL (0.55-1.3)
[2022-03-24 11:47] LABS: BILIRUBIN,TOTAL 2.4 mg/dL (0.2-1); TOT PROT 6.4 g/dl (6.4-8.2)
[2022-03-24] MEDS ORDERED: INSULIN (NOVOLOG) ASPART 100 UNITS/ML 10ML VIAL ONE (11:48)
[2022-03-24] MEDS: MAGNESIUM OXIDE 400 MG TABLET (FP) PO SCH ×2 (12:35→21:27)
[2022-03-24] MEDS: AMPICILLIN NA/SULBACTAM NA 3 GM in SODIUM CHLORIDE 100 ML IVPB SCH (17:36)
[2022-03-24] MEDS: FINASTERIDE 5 MG TABLET (FP) PO SCH (21:27)
[2022-03-25] MEDS: AMPICILLIN NA/SULBACTAM NA 3 GM in SODIUM CHLORIDE 100 ML IVPB SCH ×3 (03:15→17:03)
[2022-03-25] MEDS: NAPH,MB-DB/K PH,MBDB POWDER PACKET PO SCH ×3 (06:47→22:49)
[2022-03-25] MEDS: chlordiazePOXIDE HCL 25 MG CAPSULE PO SCH ×2 (06:47→13:33)
[2022-03-25] MEDS: INSULIN SLIDING SCALE (NOVOLOG) 1 VIAL SQ SCH ×4 (06:57→23:01)
[2022-03-25 10:01] LABS: BASO % 0.4 % (0-2.0); EOS % 0.8 % (0-4.5); HEMATOCRIT 33.6 % (35.4-49); HEMOGLOBIN 11.4 GM/dL (11.7-16.9); INR 1.78 (0.83-1.09); LYMPH % 5.7 % (8-40); MCH 35.6 pg (25.7-33.7); MEAN CELL VOLUME 104.9 fl (80-96); MEAN PLT VOLUME 9.8 fl (7.5-11.1); MONO % 7.9 % (3.8-10.2); NEUT % 85.2 % (42.8-82.8); PLATELET COUNT 142 10^3/uL (134-434); PROTHROMBIN TIME (PATIENT) 20.6 SEC (9.7-13.0); RDW 14.5 % (11.9-15.9); WHITE BLOOD COUNT 10.8 K/mm3 (4.0-10.0)
[2022-03-25 10:16] LABS: CALCIUM 8.3 mg/dL (8.5-10.1)
[2022-03-25 10:17] LABS: ALBUMIN 2.3 g/dl (3.4-5.0); MAGNESIUM 1.8 mg/dL (1.8-2.4)
[2022-03-25 10:20] LABS: CREATININE 0.6 mg/dL (0.55-1.3)
[2022-03-25 10:21] LABS: BILIRUBIN,TOTAL 2.3 mg/dL (0.2-1); TOT PROT 6.5 g/dl (6.4-8.2)
[2022-03-25] MEDS: THIAMINE HCL 100 MG TABLET (FP) PO SCH (10:42)
[2022-03-25] MEDS: MULTIVITAMINS (DAILY MVI) TABLET (FP) PO SCH (10:42)
[2022-03-25] MEDS: TAMSULOSIN HCL 0.4 MG CAP PO SCH ×2 (10:42→22:49)
[2022-03-25] MEDS: SPIRONOLACTONE 25 MG TABLET PO SCH (10:43)
[2022-03-25] MEDS: FUROSEMIDE 40 MG/4 ML INJECTABLE VIAL IVPUSH SCH (10:44)
[2022-03-25] MEDS: ENOXAPARIN NA (PORCINE) 40 MG/0.4 ML DISP.SYRIN SQ SCH (10:44)
[2022-03-25] MEDS: levETIRAcetam 500 MG TABLET (FP) PO SCH ×2 (13:30→22:49)
[2022-03-25 15:45] LABS: BF WBC & OTHER NUCLEATED CELLS 106 /mm3
[2022-03-25 16:10] LABS: BODY FLUID MACROPHAGES 45 %; BODY FLUID MONOCYTE 7 %
[2022-03-25 16:11] LABS: BODY FLUID MESOTHELIAL 5 %
[2022-03-25 17:49] LABS: BF WBC & OTHER NUCLEATED CELLS 88 /mm3
[2022-03-25] MEDS ORDERED: chlordiazePOXIDE HCL 25 MG CAPSULE PO SCH (22:00)
[2022-03-25] MEDS: FINASTERIDE 5 MG TABLET (FP) PO SCH (22:49)
[2022-03-26] MEDS: AMPICILLIN NA/SULBACTAM NA 3 GM in SODIUM CHLORIDE 100 ML IVPB SCH ×3 (01:40→17:27)
[2022-03-26] MEDS: NAPH,MB-DB/K PH,MBDB POWDER PACKET PO SCH ×3 (06:24→22:37)
[2022-03-26] MEDS: INSULIN SLIDING SCALE (NOVOLOG) 1 VIAL SQ SCH ×4 (06:52→23:01)
[2022-03-26 09:35] LABS: INR 1.91 (0.83-1.09); PROTHROMBIN TIME (PATIENT) 22.1 SEC (9.7-13.0)
[2022-03-26] MEDS: levETIRAcetam 500 MG TABLET (FP) PO SCH ×2 (09:38→22:37)
[2022-03-26] MEDS: TAMSULOSIN HCL 0.4 MG CAP PO SCH ×2 (09:39→22:37)
[2022-03-26 09:40] LABS: BASO % 0.3 % (0-2.0); EOS % 1.7 % (0-4.5); HEMATOCRIT 28.2 % (35.4-49); HEMOGLOBIN 9.4 GM/dL (11.7-16.9); LYMPH % 9.2 % (8-40); MCHC 33.4 g/dl (32.0-35.9); MEAN CELL VOLUME 104.7 fl (80-96); MEAN PLT VOLUME 9.2 fl (7.5-11.1); MONO % 9.8 % (3.8-10.2); PLATELET COUNT 109 10^3/uL (134-434); RDW 14.3 % (11.9-15.9); WHITE BLOOD COUNT 9.1 K/mm3 (4.0-10.0)
[2022-03-26 09:42] LABS: CALCIUM 7.7 mg/dL (8.5-10.1)
[2022-03-26 09:43] LABS: BLOOD UREA NITROGEN 9.4 mg/dL (7-18); MAGNESIUM 1.9 mg/dL (1.8-2.4)
[2022-03-26 09:46] LABS: CREATININE 0.6 mg/dL (0.55-1.3)
[2022-03-26 09:47] LABS: BILIRUBIN,TOTAL 1.5 mg/dL (0.2-1); TOT PROT 4.9 g/dl (6.4-8.2)
[2022-03-26 09:53] LABS: ALBUMIN 1.7 g/dl (3.4-5.0)
[2022-03-26] MEDS ORDERED: SODIUM CHLORIDE 250 ML IV STA (09:54)
[2022-03-26] MEDS: THIAMINE HCL 100 MG TABLET (FP) PO SCH (11:19)
[2022-03-26] MEDS: SPIRONOLACTONE 25 MG TABLET PO SCH ×2 (11:19→22:36)
[2022-03-26] MEDS: ENOXAPARIN NA (PORCINE) 40 MG/0.4 ML DISP.SYRIN SQ SCH (11:20)
[2022-03-26] MEDS: MULTIVITAMINS (DAILY MVI) TABLET (FP) PO SCH (11:20)
[2022-03-26] MEDS: FUROSEMIDE 40 MG/4 ML INJECTABLE VIAL IVPUSH SCH (14:31)
[2022-03-26] MEDS: FINASTERIDE 5 MG TABLET (FP) PO SCH (22:36)
[2022-03-26] MEDS: INSULIN (LEVEMIR) 100 UNITS/ML UNITS SQ SCH (23:01)
[2022-03-27] MEDS: AMPICILLIN NA/SULBACTAM NA 3 GM in SODIUM CHLORIDE 100 ML IVPB SCH ×3 (01:52→18:06)
[2022-03-27] MEDS ORDERED: ACETAMINOPHEN 500 MG TABLET (FP) PO ONE (05:42)
[2022-03-27] MEDS: NAPH,MB-DB/K PH,MBDB POWDER PACKET PO SCH ×3 (06:21→22:15)
[2022-03-27] MEDS: INSULIN SLIDING SCALE (NOVOLOG) 1 VIAL SQ SCH ×4 (06:45→23:53)
[2022-03-27] MEDS: TAMSULOSIN HCL 0.4 MG CAP PO SCH ×2 (08:49→22:15)
[2022-03-27] MEDS: SPIRONOLACTONE 25 MG TABLET PO SCH ×2 (11:12→22:15)
[2022-03-27] MEDS: levETIRAcetam 500 MG TABLET (FP) PO SCH ×2 (11:13→22:15)
[2022-03-27] MEDS: THIAMINE HCL 100 MG TABLET (FP) PO SCH (11:14)
[2022-03-27] MEDS: MULTIVITAMINS (DAILY MVI) TABLET (FP) PO SCH (11:14)
[2022-03-27] MEDS: FUROSEMIDE 40 MG/4 ML INJECTABLE VIAL IVPUSH SCH (11:15)
[2022-03-27] MEDS: ENOXAPARIN NA (PORCINE) 40 MG/0.4 ML DISP.SYRIN SQ SCH (11:16)
[2022-03-27] MEDS ORDERED: INSULIN (NOVOLOG) ASPART 100 UNITS/ML 10ML VIAL ONE (11:32)
[2022-03-27 13:08] LABS: BODY FLUID ALBUMIN 0.6 g/dL (Not Estab.)
[2022-03-27 14:09] LABS: BODY FLUID ALBUMIN <0.2 g/dL (Not Estab.)
[2022-03-27] MEDS: FINASTERIDE 5 MG TABLET (FP) PO SCH (22:15)
[2022-03-27] MEDS: LACTULOSE 20 GM/30 ML UDC (FOR ORAL USE ONLY) PO SCH (22:15)
[2022-03-27] MEDS: INSULIN (LEVEMIR) 100 UNITS/ML UNITS SQ SCH (23:53)
[2022-03-28] MEDS: AMPICILLIN NA/SULBACTAM NA 3 GM in SODIUM CHLORIDE 100 ML IVPB SCH ×3 (02:37→18:27)
[2022-03-28] MEDS: NAPH,MB-DB/K PH,MBDB POWDER PACKET PO SCH ×2 (05:42→15:36)
[2022-03-28] MEDS: INSULIN SLIDING SCALE (NOVOLOG) 1 VIAL SQ SCH ×3 (08:17→18:14)
[2022-03-28] MEDS: TAMSULOSIN HCL 0.4 MG CAP PO SCH (09:33)
[2022-03-28] MEDS: MULTIVITAMINS (DAILY MVI) TABLET (FP) PO SCH (09:33)
[2022-03-28] MEDS: SPIRONOLACTONE 25 MG TABLET PO SCH (09:33)
[2022-03-28] MEDS: LACTULOSE 20 GM/30 ML UDC (FOR ORAL USE ONLY) PO SCH (09:33)
[2022-03-28] MEDS: levETIRAcetam 500 MG TABLET (FP) PO SCH (09:33)
[2022-03-28] MEDS: THIAMINE HCL 100 MG TABLET (FP) PO SCH (09:33)
[2022-03-28] MEDS: ENOXAPARIN NA (PORCINE) 40 MG/0.4 ML DISP.SYRIN SQ SCH (09:35)
[2022-03-28] MEDS ORDERED: FUROSEMIDE 40 MG TABLET (FP) PO SCH (10:00)
[2022-03-28 10:10] LABS: BASO % 0.7 % (0-2.0); EOS % 1.9 % (0-4.5); HEMATOCRIT 30.9 % (35.4-49); HEMOGLOBIN 10.4 GM/dL (11.7-16.9); LYMPH % 8.9 % (8-40); MCH 35.5 pg (25.7-33.7); MCHC 33.6 g/dl (32.0-35.9); MEAN CELL VOLUME 105.9 fl (80-96); MEAN PLT VOLUME 9.3 fl (7.5-11.1); MONO % 8.2 % (3.8-10.2); NEUT % 80.3 % (42.8-82.8); PLATELET COUNT 120 10^3/uL (134-434); RBC 2.92 M/mm3 (4.00-5.60); RDW 14.5 % (11.9-15.9); WHITE BLOOD COUNT 9.7 K/mm3 (4.0-10.0)
[2022-03-28 10:34] LABS: ALBUMIN 1.8 g/dl (3.4-5.0); BLOOD UREA NITROGEN 10.5 mg/dL (7-18); CALCIUM 7.7 mg/dL (8.5-10.1); MAGNESIUM 1.8 mg/dL (1.8-2.4)
[2022-03-28 10:37] LABS: CREATININE 0.6 mg/dL (0.55-1.3)
[2022-03-28 10:39] LABS: BILIRUBIN,TOTAL 1.5 mg/dL (0.2-1); TOT PROT 5.5 g/dl (6.4-8.2)
[2022-03-28 10:42] LABS: ANISOCYTOSIS 1+; MACROCYTOSIS 1+; PLATELET ESTIMATE DECREASED
[2022-03-28 16:18] VITALS: BP 100/65; PULSE 118; RESP 20; TEMP 97.4
== END 2022-03-28 21:04 | disposition home or self-care (01) | DRG 433 ==
LOC: JER 23:33 → UNDOADMOB 03-22 02:51 → JERBED 03-22 02:51 → INTOOBSV 03-22 02:51 → JERBED 03-22 05:16 → J8W 03-22 21:43 → JERBED 03-22 21:43 → J8W 03-22 21:43 → OBSVTOIN 03-25 13:19
PROVIDERS: ADMIT Internal Medicine; ATTEND Nurse Practitioner Family
PROC: 0W9G3ZZ Drainage of Peritoneal Cavity, Percutaneous Approach (ICD-10-PCS; principal; 2022-03-25)
DX: K70.31 Alcoholic cirrhosis of liver with ascites (principal); E87.1 Hypo-osmolality and hyponatremia; N39.0 Urinary tract infection, site not specified; N40.0 Benign prostatic hyperplasia without lower urinary tract symptoms; E87.6 Hypokalemia; E83.42 Hypomagnesemia; E11.65 Type 2 diabetes mellitus with hyperglycemia; R29.6 Repeated falls; R33.9 Retention of urine, unspecified; R94.5 Abnormal results of liver function studies; R16.2 Hepatomegaly with splenomegaly, not elsewhere classified; R00.0 Tachycardia, unspecified; G40.909 Epilepsy, unspecified, not intractable, without status epilepticus; R60.0 Localized edema; F10.10 Alcohol abuse, uncomplicated; R79.89 Other specified abnormal findings of blood chemistry; K76.0 Fatty (change of) liver, not elsewhere classified; B95.2 Enterococcus as the cause of diseases classified elsewhere; Z87.820 Personal history of traumatic brain injury
CPT/HCPCS: 0241U-QW; 36415; 71046-TC-FY; 73630-TC-RT-FY; 74176-TC; 74178-TC; 76942-TC; 80053; 81003; 82042; 82105; 82140; 82150; 82248; 82465; 82945; 82962; 83615; 83690; 83735; 83880; 83986; 84100; 84157; 84478; 85025; 85610; 85730; 86705; 86709; 86850; 86900; 86901; 87070; 87075; 87086; 87102; 87116; 87186; 87205; 87206; 87210; 87340; 87517; 88108; 88305-TC; 93005; 93010; 93306-TC; 93970-TC; 97116-GP; 97162-GP; 99285-25; G0378; Q9967

== ENCOUNTER 2022-04-02 04:54 | Inpatient (IN) | payer BC ==
[2022-04-02 06:40] LABS: BASO % 0.8 % (0-2.0); EOS % 2.1 % (0-4.5); HEMATOCRIT 34.1 % (35.4-49); HEMOGLOBIN 11.5 GM/dL (11.7-16.9); LYMPH % 6.3 % (8-40); MCH 35.3 pg (25.7-33.7); MCHC 33.7 g/dl (32.0-35.9); MEAN CELL VOLUME 104.7 fl (80-96); MEAN PLT VOLUME 9.7 fl (7.5-11.1); MONO % 6.4 % (3.8-10.2); NEUT % 84.4 % (42.8-82.8); PLATELET COUNT 140 10^3/uL (134-434); RBC 3.25 M/mm3 (4.00-5.60); RDW 14.9 % (11.9-15.9); WHITE BLOOD COUNT 9.7 K/mm3 (4.0-10.0)
[2022-04-02 06:58] LABS: CHLORIDE 96 mmol/L (98-107); SODIUM 133 mmol/L (136-145)
[2022-04-02 07:00] LABS: INR 1.93 (0.83-1.09); PROTHROMBIN TIME (PATIENT) 22.4 SEC (9.7-13.0)
[2022-04-02 07:01] LABS: ANION GAP 10 MMOL/L (8-16); BLOOD UREA NITROGEN 10.4 mg/dL (7-18); CALCIUM 7.8 mg/dL (8.5-10.1); CO2 27 mmol/L (21-32); GLUCOSE,RANDOM 194 mg/dL (74-106); LIPASE < 10 U/L (73-393)
[2022-04-02 07:03] LABS: ACTIVATED PTT 45.1 SECONDS (25.2-36.5)
[2022-04-02 07:04] LABS: CREATININE 0.7 mg/dL (0.55-1.3); SGOT/AST 74 U/L (15-37); SGPT/ALT 35 U/L (13-61)
[2022-04-02 07:06] LABS: BILIRUBIN,TOTAL 2.1 mg/dL (0.2-1)
[2022-04-02 07:07] LABS: ALK PHOS 279 U/L (45-117)
[2022-04-02 07:48] LABS: LACTIC ACID 2.8 mmol/L (0.4-2.0)
[2022-04-02 13:53] LABS: PH,URINE 6.5 (5.0-8.0); URINE APPEARANCE CLEAR; URINE BILIRUBIN NEGATIVE (NEGATIVE); URINE COLOR YELLOW; URINE GLUCOSE (UA) NEGATIVE (NEGATIVE); URINE KETONE NEGATIVE (NEGATIVE); URINE LEUK ESTERASE NEGATIVE (NEGATIVE); URINE NITRITE NEGATIVE (NEGATIVE); URINE PROTEIN NEGATIVE (NEGATIVE); URINE UROBILINOGEN 0.2 mg/dL (0.2-1.0)
[2022-04-02] MEDS ORDERED: SPIRONOLACTONE 25 MG TABLET ONE ×2 (16:03→22:01)
[2022-04-02] MEDS ORDERED: FUROSEMIDE 40 MG TABLET (FP) ONE ×2 (16:03→22:00)
[2022-04-02] MEDS ORDERED: LACTULOSE 20 GM/30 ML UDC (FOR ORAL USE ONLY) ONE ×2 (16:03→22:01)
[2022-04-02] MEDS ORDERED: levETIRAcetam 500 MG TABLET (FP) PO ONE ×2 (16:03→22:01)
[2022-04-02] MEDS: FUROSEMIDE 40 MG TABLET (FP) PO SCH (16:10)
[2022-04-02] MEDS: LACTULOSE 20 GM/30 ML UDC (FOR ORAL USE ONLY) PO SCH ×2 (16:10→23:06)
[2022-04-02] MEDS: SPIRONOLACTONE 25 MG TABLET PO SCH ×2 (16:10→23:12)
[2022-04-02] MEDS: levETIRAcetam 500 MG TABLET (FP) PO SCH ×2 (16:10→23:06)
[2022-04-02] MEDS: INSULIN SLIDING SCALE (NOVOLOG) 1 VIAL SQ SCH ×2 (16:30→22:50)
[2022-04-02] MEDS ORDERED: TAMSULOSIN HCL 0.4 MG CAP ONE (22:01)
[2022-04-02] MEDS ORDERED: HEPARIN NA (PORCINE) 5,000 UNITS/ML 1ML VIAL ONE (22:01)
[2022-04-02] MEDS: HEPARIN NA (PORCINE) 5,000 UNITS/ML 1ML VIAL SQ SCH (23:06)
[2022-04-02] MEDS: TAMSULOSIN HCL 0.4 MG CAP PO SCH (23:06)
[2022-04-02] MEDS: FINASTERIDE 5 MG TABLET (FP) PO SCH (23:12)
[2022-04-03] MEDS: HEPARIN NA (PORCINE) 5,000 UNITS/ML 1ML VIAL SQ SCH ×3 (06:29→22:59)
[2022-04-03] MEDS ORDERED: HEPARIN NA (PORCINE) 5,000 UNITS/ML 1ML VIAL ONE ×2 (06:33→14:26)
[2022-04-03] MEDS: INSULIN SLIDING SCALE (NOVOLOG) 1 VIAL SQ SCH ×3 (09:09→23:00)
[2022-04-03 09:41] LABS: BASO % 0.5 % (0-2.0); EOS % 2.3 % (0-4.5); HEMATOCRIT 30.4 % (35.4-49); HEMOGLOBIN 10.6 GM/dL (11.7-16.9); MCH 36.3 pg (25.7-33.7); MCHC 34.7 g/dl (32.0-35.9); MEAN CELL VOLUME 104.6 fl (80-96); MEAN PLT VOLUME 9.5 fl (7.5-11.1); MONO % 6.5 % (3.8-10.2); NEUT % 81.7 % (42.8-82.8); PLATELET COUNT 140 10^3/uL (134-434); RBC 2.91 M/mm3 (4.00-5.60)
[2022-04-03 09:57] LABS: INR 2.07 (0.83-1.09)
[2022-04-03] MEDS: SPIRONOLACTONE 25 MG TABLET PO SCH ×2 (09:57→22:59)
[2022-04-03] MEDS: LACTULOSE 20 GM/30 ML UDC (FOR ORAL USE ONLY) PO SCH ×2 (09:57→22:58)
[2022-04-03] MEDS: TAMSULOSIN HCL 0.4 MG CAP PO SCH ×2 (09:57→22:59)
[2022-04-03] MEDS: levETIRAcetam 500 MG TABLET (FP) PO SCH ×2 (09:58→22:59)
[2022-04-03] MEDS: THIAMINE HCL 100 MG TABLET (FP) PO SCH (09:58)
[2022-04-03] MEDS: FOLIC ACID 1 MG TABLET (FP) PO SCH (09:58)
[2022-04-03] MEDS: FUROSEMIDE 40 MG TABLET (FP) PO SCH (09:58)
[2022-04-03] MEDS ORDERED: FUROSEMIDE 40 MG TABLET (FP) ONE (09:59)
[2022-04-03] MEDS ORDERED: THIAMINE HCL 100 MG TABLET (FP) ONE (09:59)
[2022-04-03] MEDS ORDERED: LACTULOSE 20 GM/30 ML UDC (FOR ORAL USE ONLY) ONE ×2 (10:00→10:03)
[2022-04-03] MEDS ORDERED: SPIRONOLACTONE 25 MG TABLET ONE (10:00)
[2022-04-03] MEDS ORDERED: levETIRAcetam 500 MG TABLET (FP) PO ONE (10:00)
[2022-04-03] MEDS ORDERED: TAMSULOSIN HCL 0.4 MG CAP ONE (10:00)
[2022-04-03] MEDS ORDERED: FOLIC ACID 1 MG TABLET (FP) ONE (10:00)
[2022-04-03 10:05] LABS: ALBUMIN 1.8 g/dl (3.4-5.0); BLOOD UREA NITROGEN 6.3 mg/dL (7-18); CALCIUM 7.9 mg/dL (8.5-10.1)
[2022-04-03 10:07] LABS: MAGNESIUM 1.5 mg/dL (1.8-2.4)
[2022-04-03 10:10] LABS: BILIRUBIN,TOTAL 2.1 mg/dL (0.2-1); CREATININE 0.6 mg/dL (0.55-1.3); PHOSPHOROUS 2.5 mg/dL (2.5-4.9); TOT PROT 5.6 g/dl (6.4-8.2)
[2022-04-03] MEDS ORDERED: PHYTONADIONE 5 MG TABLET PO ONE (10:12)
[2022-04-03] MEDS ORDERED: PHYTONADIONE 5 MG TABLET ONE (12:44)
[2022-04-03 18:31] VITALS: BMI 25.6
[2022-04-03] MEDS: FINASTERIDE 5 MG TABLET (FP) PO SCH (22:59)
[2022-04-04] MEDS: INSULIN SLIDING SCALE (NOVOLOG) 1 VIAL SQ SCH ×4 (06:50→22:56)
[2022-04-04] MEDS: HEPARIN NA (PORCINE) 5,000 UNITS/ML 1ML VIAL SQ SCH (06:50)
[2022-04-04] MEDS: FUROSEMIDE 40 MG TABLET (FP) PO SCH (09:26)
[2022-04-04] MEDS: TAMSULOSIN HCL 0.4 MG CAP PO SCH ×2 (09:26→22:52)
[2022-04-04] MEDS: THIAMINE HCL 100 MG TABLET (FP) PO SCH (09:26)
[2022-04-04] MEDS: levETIRAcetam 500 MG TABLET (FP) PO SCH ×2 (09:26→22:52)
[2022-04-04] MEDS: SPIRONOLACTONE 25 MG TABLET PO SCH ×2 (09:26→22:52)
[2022-04-04] MEDS: LACTULOSE 20 GM/30 ML UDC (FOR ORAL USE ONLY) PO SCH ×2 (09:27→22:54)
[2022-04-04] MEDS: FOLIC ACID 1 MG TABLET (FP) PO SCH (09:27)
[2022-04-04 10:44] LABS: BASO % 0.6 % (0-2.0); EOS % 2.9 % (0-4.5); HEMATOCRIT 32.6 % (35.4-49); HEMOGLOBIN 11.3 GM/dL (11.7-16.9); LYMPH % 8.9 % (8-40); MCH 35.9 pg (25.7-33.7); MCHC 34.5 g/dl (32.0-35.9); MEAN PLT VOLUME 9.5 fl (7.5-11.1); MONO % 7.3 % (3.8-10.2); NEUT % 80.3 % (42.8-82.8); PLATELET COUNT 159 10^3/uL (134-434); RBC 3.14 M/mm3 (4.00-5.60); RDW 14.5 % (11.9-15.9)
[2022-04-04 10:48] LABS: INR 1.95 (0.83-1.09); PROTHROMBIN TIME (PATIENT) 22.6 SEC (9.7-13.0)
[2022-04-04 11:16] LABS: BLOOD UREA NITROGEN 6.3 mg/dL (7-18); CALCIUM 7.7 mg/dL (8.5-10.1); MAGNESIUM 1.6 mg/dL (1.8-2.4)
[2022-04-04 11:19] LABS: CREATININE 0.7 mg/dL (0.55-1.3)
[2022-04-04 11:20] LABS: BILIRUBIN,TOTAL 2.2 mg/dL (0.2-1)
[2022-04-04 11:21] LABS: TOT PROT 5.8 g/dl (6.4-8.2)
[2022-04-04] MEDS: FINASTERIDE 5 MG TABLET (FP) PO SCH (22:52)
[2022-04-05] MEDS: INSULIN SLIDING SCALE (NOVOLOG) 1 VIAL SQ SCH ×5 (07:09→22:03)
[2022-04-05] MEDS: THIAMINE HCL 100 MG TABLET (FP) PO SCH (10:17)
[2022-04-05] MEDS: levETIRAcetam 500 MG TABLET (FP) PO SCH ×2 (10:17→21:33)
[2022-04-05] MEDS: SPIRONOLACTONE 25 MG TABLET PO SCH ×2 (10:17→21:34)
[2022-04-05] MEDS: FUROSEMIDE 40 MG TABLET (FP) PO SCH (10:17)
[2022-04-05 10:18] LABS: BASO % 0.5 % (0-2.0); EOS % 2.6 % (0-4.5); HEMOGLOBIN 12.2 GM/dL (11.7-16.9); LYMPH % 8.3 % (8-40); MCH 35.8 pg (25.7-33.7); MCHC 34.7 g/dl (32.0-35.9); MEAN PLT VOLUME 9.4 fl (7.5-11.1); MONO % 5.6 % (3.8-10.2); PLATELET COUNT 179 10^3/uL (134-434); RDW 14.5 % (11.9-15.9); WHITE BLOOD COUNT 10.7 K/mm3 (4.0-10.0)
[2022-04-05] MEDS: LACTULOSE 20 GM/30 ML UDC (FOR ORAL USE ONLY) PO SCH ×2 (10:18→21:32)
[2022-04-05] MEDS: FOLIC ACID 1 MG TABLET (FP) PO SCH (10:18)
[2022-04-05] MEDS: TAMSULOSIN HCL 0.4 MG CAP PO SCH ×2 (10:18→21:33)
[2022-04-05 10:29] LABS: INR 1.81 (0.83-1.09); PROTHROMBIN TIME (PATIENT) 20.9 SEC (9.7-13.0)
[2022-04-05 10:51] LABS: BLOOD UREA NITROGEN 4.2 mg/dL (7-18); MAGNESIUM 1.7 mg/dL (1.8-2.4)
[2022-04-05 10:54] LABS: CREATININE 0.6 mg/dL (0.55-1.3)
[2022-04-05 10:55] LABS: TOT PROT 6.2 g/dl (6.4-8.2)
[2022-04-05 10:56] LABS: BILIRUBIN,TOTAL 2.3 mg/dL (0.2-1)
[2022-04-05] MEDS: HEPARIN NA (PORCINE) 5,000 UNITS/ML 1ML VIAL SQ SCH ×2 (14:04→21:33)
[2022-04-05] MEDS: FINASTERIDE 5 MG TABLET (FP) PO SCH (21:34)
[2022-04-06] MEDS: HEPARIN NA (PORCINE) 5,000 UNITS/ML 1ML VIAL SQ SCH ×3 (06:20→21:57)
[2022-04-06] MEDS: INSULIN SLIDING SCALE (NOVOLOG) 1 VIAL SQ SCH ×4 (06:53→22:12)
[2022-04-06] MEDS: THIAMINE HCL 100 MG TABLET (FP) PO SCH (09:31)
[2022-04-06] MEDS: levETIRAcetam 500 MG TABLET (FP) PO SCH ×2 (09:31→21:56)
[2022-04-06] MEDS: FOLIC ACID 1 MG TABLET (FP) PO SCH (09:31)
[2022-04-06 09:48] LABS: BASO % 0.4 % (0-2.0); EOS % 1.9 % (0-4.5); HEMATOCRIT 35.6 % (35.4-49); HEMOGLOBIN 12.3 GM/dL (11.7-16.9); LYMPH % 10.9 % (8-40); MCH 35.6 pg (25.7-33.7); MCHC 34.5 g/dl (32.0-35.9); MEAN CELL VOLUME 103.2 fl (80-96); MEAN PLT VOLUME 9.6 fl (7.5-11.1); MONO % 6.9 % (3.8-10.2); NEUT % 79.9 % (42.8-82.8); PLATELET COUNT 216 10^3/uL (134-434); RBC 3.45 M/mm3 (4.00-5.60); RDW 14.8 % (11.9-15.9); WHITE BLOOD COUNT 14.4 K/mm3 (4.0-10.0)
[2022-04-06] MEDS ORDERED: SODIUM CHLORIDE 500 ML IV STA (09:52)
[2022-04-06 10:01] LABS: INR 1.88 (0.83-1.09); PROTHROMBIN TIME (PATIENT) 21.8 SEC (9.7-13.0)
[2022-04-06 10:36] LABS: ALBUMIN 2.1 g/dl (3.4-5.0); BLOOD UREA NITROGEN 4.8 mg/dL (7-18)
[2022-04-06 10:37] LABS: MAGNESIUM 1.6 mg/dL (1.8-2.4)
[2022-04-06 10:39] LABS: CREATININE 0.8 mg/dL (0.55-1.3)
[2022-04-06 10:40] LABS: BILIRUBIN,TOTAL 2.4 mg/dL (0.2-1)
[2022-04-06 10:41] LABS: TOT PROT 6.5 g/dl (6.4-8.2)
[2022-04-06] MEDS: FUROSEMIDE 40 MG TABLET (FP) PO SCH (10:50)
[2022-04-06] MEDS: LACTULOSE 20 GM/30 ML UDC (FOR ORAL USE ONLY) PO SCH ×2 (10:50→21:56)
[2022-04-06] MEDS: SPIRONOLACTONE 25 MG TABLET PO SCH ×2 (10:50→21:56)
[2022-04-06] MEDS: TAMSULOSIN HCL 0.4 MG CAP PO SCH ×2 (10:50→21:56)
[2022-04-06] MEDS: FINASTERIDE 5 MG TABLET (FP) PO SCH (21:57)
[2022-04-07] MEDS: HEPARIN NA (PORCINE) 5,000 UNITS/ML 1ML VIAL SQ SCH ×3 (05:23→21:33)
[2022-04-07] MEDS: INSULIN SLIDING SCALE (NOVOLOG) 1 VIAL SQ SCH ×4 (06:24→21:34)
[2022-04-07] MEDS: SPIRONOLACTONE 25 MG TABLET PO SCH ×2 (09:40→21:33)
[2022-04-07] MEDS: levETIRAcetam 500 MG TABLET (FP) PO SCH ×2 (09:40→21:33)
[2022-04-07] MEDS: TAMSULOSIN HCL 0.4 MG CAP PO SCH ×2 (09:40→21:33)
[2022-04-07] MEDS: FOLIC ACID 1 MG TABLET (FP) PO SCH (09:40)
[2022-04-07] MEDS: LACTULOSE 20 GM/30 ML UDC (FOR ORAL USE ONLY) PO SCH ×2 (09:41→21:33)
[2022-04-07] MEDS: THIAMINE HCL 100 MG TABLET (FP) PO SCH (09:41)
[2022-04-07] MEDS: FUROSEMIDE 40 MG TABLET (FP) PO SCH (09:42)
[2022-04-07 12:26] LABS: BASO % 0.2 % (0-2.0); EOS % 1.1 % (0-4.5); HEMATOCRIT 32.5 % (35.4-49); HEMOGLOBIN 11.1 GM/dL (11.7-16.9); LYMPH % 4.3 % (8-40); MCH 35.5 pg (25.7-33.7); MCHC 34.3 g/dl (32.0-35.9); MEAN CELL VOLUME 103.7 fl (80-96); MEAN PLT VOLUME 8.9 fl (7.5-11.1); MONO % 6.1 % (3.8-10.2); NEUT % 88.3 % (42.8-82.8); PLATELET COUNT 180 10^3/uL (134-434); RBC 3.13 M/mm3 (4.00-5.60); RDW 14.7 % (11.9-15.9); WHITE BLOOD COUNT 11.8 K/mm3 (4.0-10.0)
[2022-04-07 12:52] LABS: CALCIUM 7.6 mg/dL (8.5-10.1)
[2022-04-07 12:53] LABS: ALBUMIN 1.8 g/dl (3.4-5.0); BLOOD UREA NITROGEN 6.4 mg/dL (7-18); MAGNESIUM 1.6 mg/dL (1.8-2.4)
[2022-04-07 12:56] LABS: CREATININE 0.9 mg/dL (0.55-1.3)
[2022-04-07 12:57] LABS: BILIRUBIN,TOTAL 2.3 mg/dL (0.2-1)
[2022-04-07 12:58] LABS: TOT PROT 5.8 g/dl (6.4-8.2)
[2022-04-07] MEDS: MAGNESIUM OXIDE 400 MG TABLET (FP) PO SCH (15:09)
[2022-04-07] MEDS ORDERED: MAGNESIUM OXIDE 400 MG TABLET (FP) PO SCH (15:15)
[2022-04-07] MEDS ORDERED: MAGNESIUM 2GM/50ML STERILE WATER IVPB IVPB ONE (15:30)
[2022-04-07] MEDS ORDERED: INSULIN (NOVOLOG) ASPART 100 UNITS/ML 10ML VIAL ONE ×2 (16:33→21:13)
[2022-04-07] MEDS ORDERED: INSULIN (LEVEMIR) 100 UNITS/ML UNITS SQ ONE (21:13)
[2022-04-07] MEDS: FINASTERIDE 5 MG TABLET (FP) PO SCH (21:36)
[2022-04-08] MEDS: HEPARIN NA (PORCINE) 5,000 UNITS/ML 1ML VIAL SQ SCH ×3 (06:04→21:43)
[2022-04-08] MEDS: INSULIN SLIDING SCALE (NOVOLOG) 1 VIAL SQ SCH ×4 (06:05→21:42)
[2022-04-08 09:59] LABS: BASO % 0.3 % (0-2.0); EOS % 2.4 % (0-4.5); HEMATOCRIT 28.8 % (35.4-49); HEMOGLOBIN 10.2 GM/dL (11.7-16.9); MCH 36.6 pg (25.7-33.7); MCHC 35.3 g/dl (32.0-35.9); MEAN CELL VOLUME 103.6 fl (80-96); MEAN PLT VOLUME 9.4 fl (7.5-11.1); MONO % 7.2 % (3.8-10.2); NEUT % 81.1 % (42.8-82.8); PLATELET COUNT 177 10^3/uL (134-434); RBC 2.78 M/mm3 (4.00-5.60); RDW 14.8 % (11.9-15.9); WHITE BLOOD COUNT 10.9 K/mm3 (4.0-10.0)
[2022-04-08] MEDS: TAMSULOSIN HCL 0.4 MG CAP PO SCH ×2 (10:27→21:37)
[2022-04-08] MEDS: SPIRONOLACTONE 25 MG TABLET PO SCH ×2 (10:27→21:36)
[2022-04-08] MEDS: levETIRAcetam 500 MG TABLET (FP) PO SCH ×2 (10:27→21:36)
[2022-04-08] MEDS: MAGNESIUM OXIDE 400 MG TABLET (FP) PO SCH (10:27)
[2022-04-08] MEDS: THIAMINE HCL 100 MG TABLET (FP) PO SCH (10:28)
[2022-04-08] MEDS: FOLIC ACID 1 MG TABLET (FP) PO SCH (10:28)
[2022-04-08] MEDS: LACTULOSE 20 GM/30 ML UDC (FOR ORAL USE ONLY) PO SCH ×2 (10:28→21:35)
[2022-04-08] MEDS: FUROSEMIDE 40 MG TABLET (FP) PO SCH (10:29)
[2022-04-08 10:33] LABS: ALBUMIN 1.7 g/dl (3.4-5.0); BLOOD UREA NITROGEN 7.6 mg/dL (7-18)
[2022-04-08 10:36] LABS: CREATININE 0.6 mg/dL (0.55-1.3)
[2022-04-08 10:37] LABS: BILIRUBIN,TOTAL 2.2 mg/dL (0.2-1)
[2022-04-08 10:38] LABS: TOT PROT 5.3 g/dl (6.4-8.2)
[2022-04-08 11:49] LABS: CALCIUM 7.5 mg/dL (8.5-10.1)
[2022-04-08] MEDS: FINASTERIDE 5 MG TABLET (FP) PO SCH (21:36)
[2022-04-08] MEDS: POLYETHYLENE GLYCOL (HEALTHYLAX) 3350 17 GM PACKET PO SCH (21:37)
[2022-04-08] MEDS: DOCUSATE SODIUM 100 MG CAPSULE (FP) PO SCH (21:37)
[2022-04-09] MEDS: HEPARIN NA (PORCINE) 5,000 UNITS/ML 1ML VIAL SQ SCH ×3 (06:06→23:18)
[2022-04-09] MEDS: DOCUSATE SODIUM 100 MG CAPSULE (FP) PO SCH ×3 (06:06→23:17)
[2022-04-09] MEDS: INSULIN SLIDING SCALE (NOVOLOG) 1 VIAL SQ SCH ×4 (06:07→23:22)
[2022-04-09 08:59] LABS: BASO % 0.9 % (0-2.0); EOS % 2.7 % (0-4.5); HEMATOCRIT 31.6 % (35.4-49); HEMOGLOBIN 10.8 GM/dL (11.7-16.9); LYMPH % 6.8 % (8-40); MCH 35.5 pg (25.7-33.7); MCHC 34.1 g/dl (32.0-35.9); MEAN CELL VOLUME 104.1 fl (80-96); MONO % 7.5 % (3.8-10.2); NEUT % 82.1 % (42.8-82.8); PLATELET COUNT 182 10^3/uL (134-434); RBC 3.04 M/mm3 (4.00-5.60); RDW 14.7 % (11.9-15.9); WHITE BLOOD COUNT 10.8 K/mm3 (4.0-10.0)
[2022-04-09] MEDS: TAMSULOSIN HCL 0.4 MG CAP PO SCH ×2 (09:24→23:18)
[2022-04-09] MEDS: FUROSEMIDE 40 MG TABLET (FP) PO SCH (09:24)
[2022-04-09] MEDS: MAGNESIUM OXIDE 400 MG TABLET (FP) PO SCH (09:24)
[2022-04-09] MEDS: SPIRONOLACTONE 25 MG TABLET PO SCH ×2 (09:24→23:18)
[2022-04-09] MEDS: THIAMINE HCL 100 MG TABLET (FP) PO SCH (09:24)
[2022-04-09] MEDS: FOLIC ACID 1 MG TABLET (FP) PO SCH (09:25)
[2022-04-09] MEDS: POLYETHYLENE GLYCOL (HEALTHYLAX) 3350 17 GM PACKET PO SCH ×3 (09:25→23:17)
[2022-04-09] MEDS: LACTULOSE 20 GM/30 ML UDC (FOR ORAL USE ONLY) PO SCH ×3 (09:25→23:17)
[2022-04-09] MEDS: levETIRAcetam 500 MG TABLET (FP) PO SCH ×2 (09:25→23:18)
[2022-04-09 09:37] LABS: CREATININE 0.7 mg/dL (0.55-1.3)
[2022-04-09 09:38] LABS: ALBUMIN 1.8 g/dl (3.4-5.0); BILIRUBIN,TOTAL 1.9 mg/dL (0.2-1); TOT PROT 5.7 g/dl (6.4-8.2)
[2022-04-09] MEDS: FINASTERIDE 5 MG TABLET (FP) PO SCH (23:18)
[2022-04-10] MEDS: DOCUSATE SODIUM 100 MG CAPSULE (FP) PO SCH ×3 (06:46→23:27)
[2022-04-10] MEDS: HEPARIN NA (PORCINE) 5,000 UNITS/ML 1ML VIAL SQ SCH ×3 (06:51→23:14)
[2022-04-10] MEDS: metFORMIN HCL 500 MG TABLET (FP) PO SCH ×2 (06:53→17:00)
[2022-04-10] MEDS: INSULIN SLIDING SCALE (NOVOLOG) 1 VIAL SQ SCH ×4 (06:56→23:14)
[2022-04-10] MEDS: LACTULOSE 20 GM/30 ML UDC (FOR ORAL USE ONLY) PO SCH ×2 (10:49→23:13)
[2022-04-10] MEDS: POLYETHYLENE GLYCOL (HEALTHYLAX) 3350 17 GM PACKET PO SCH ×2 (10:49→23:12)
[2022-04-10] MEDS: FUROSEMIDE 40 MG TABLET (FP) PO SCH (10:50)
[2022-04-10] MEDS: MAGNESIUM OXIDE 400 MG TABLET (FP) PO SCH (10:50)
[2022-04-10] MEDS: TAMSULOSIN HCL 0.4 MG CAP PO SCH ×2 (10:50→23:14)
[2022-04-10] MEDS: FOLIC ACID 1 MG TABLET (FP) PO SCH (10:50)
[2022-04-10] MEDS: SPIRONOLACTONE 25 MG TABLET PO SCH ×2 (10:50→23:13)
[2022-04-10] MEDS: levETIRAcetam 500 MG TABLET (FP) PO SCH ×2 (10:50→23:14)
[2022-04-10] MEDS: THIAMINE HCL 100 MG TABLET (FP) PO SCH (10:51)
[2022-04-10 15:01] LABS: BILIRUBIN,TOTAL 2.1 mg/dL (0.2-1)
[2022-04-10 15:02] LABS: ALBUMIN 2.1 g/dl (3.4-5.0); N-TERMINAL BNP 293.8 pg/ml (5-125)
[2022-04-10 15:03] LABS: CALCIUM 8.2 mg/dL (8.5-10.1)
[2022-04-10 15:04] LABS: BLOOD UREA NITROGEN 9.4 mg/dL (7-18)
[2022-04-10 15:05] LABS: CREATININE 0.8 mg/dL (0.55-1.3); PHOSPHOROUS 2.9 mg/dL (2.5-4.9)
[2022-04-10 15:07] LABS: TOT PROT 6.6 g/dl (6.4-8.2)
[2022-04-10] MEDS ORDERED: FUROSEMIDE 40 MG/4 ML INJECTABLE VIAL IVPUSH ONE (16:08)
[2022-04-10 18:02] LABS: BASO % 0.3 % (0-2.0); EOS % 0.9 % (0-4.5); HEMATOCRIT 31.6 % (35.4-49); HEMOGLOBIN 10.8 GM/dL (11.7-16.9); LYMPH % 3.7 % (8-40); MCH 35.3 pg (25.7-33.7); MEAN CELL VOLUME 103.9 fl (80-96); MEAN PLT VOLUME 9.2 fl (7.5-11.1); MONO % 5.8 % (3.8-10.2); NEUT % 89.3 % (42.8-82.8); PLATELET COUNT 165 10^3/uL (134-434); RBC 3.04 M/mm3 (4.00-5.60); RDW 14.7 % (11.9-15.9); WHITE BLOOD COUNT 10.1 K/mm3 (4.0-10.0)
[2022-04-10 18:32] LABS: CALCIUM 7.8 mg/dL (8.5-10.1)
[2022-04-10 18:33] LABS: ALBUMIN 1.9 g/dl (3.4-5.0); BLOOD UREA NITROGEN 9.7 mg/dL (7-18); MAGNESIUM 1.8 mg/dL (1.8-2.4)
[2022-04-10 18:36] LABS: CREATININE 0.9 mg/dL (0.55-1.3)
[2022-04-10 18:37] LABS: BILIRUBIN,TOTAL 1.8 mg/dL (0.2-1); TOT PROT 5.8 g/dl (6.4-8.2)
[2022-04-10] MEDS: FINASTERIDE 5 MG TABLET (FP) PO SCH (23:14)
[2022-04-11] MEDS: HEPARIN NA (PORCINE) 5,000 UNITS/ML 1ML VIAL SQ SCH ×3 (07:02→22:18)
[2022-04-11] MEDS: DOCUSATE SODIUM 100 MG CAPSULE (FP) PO SCH ×3 (07:02→22:34)
[2022-04-11] MEDS: metFORMIN HCL 500 MG TABLET (FP) PO SCH ×2 (07:02→17:09)
[2022-04-11] MEDS: INSULIN SLIDING SCALE (NOVOLOG) 1 VIAL SQ SCH ×4 (07:05→22:33)
[2022-04-11 08:26] LABS: BASO % 0.7 % (0-2.0); EOS % 2.9 % (0-4.5); HEMATOCRIT 32.7 % (35.4-49); HEMOGLOBIN 11.3 GM/dL (11.7-16.9); LYMPH % 9.3 % (8-40); MCH 35.3 pg (25.7-33.7); MCHC 34.5 g/dl (32.0-35.9); MEAN CELL VOLUME 102.3 fl (80-96); MEAN PLT VOLUME 8.8 fl (7.5-11.1); MONO % 7.4 % (3.8-10.2); NEUT % 79.7 % (42.8-82.8); PLATELET COUNT 204 10^3/uL (134-434); WHITE BLOOD COUNT 11.1 K/mm3 (4.0-10.0)
[2022-04-11 08:49] LABS: CALCIUM 7.8 mg/dL (8.5-10.1)
[2022-04-11 08:50] LABS: BLOOD UREA NITROGEN 7.9 mg/dL (7-18); MAGNESIUM 1.8 mg/dL (1.8-2.4)
[2022-04-11 08:53] LABS: CREATININE 0.7 mg/dL (0.55-1.3)
[2022-04-11 08:55] LABS: TOT PROT 6.3 g/dl (6.4-8.2)
[2022-04-11] MEDS: LACTULOSE 20 GM/30 ML UDC (FOR ORAL USE ONLY) PO SCH ×2 (10:08→22:34)
[2022-04-11] MEDS: SPIRONOLACTONE 25 MG TABLET PO SCH ×2 (10:08→22:18)
[2022-04-11] MEDS: THIAMINE HCL 100 MG TABLET (FP) PO SCH (10:09)
[2022-04-11] MEDS: TAMSULOSIN HCL 0.4 MG CAP PO SCH ×2 (10:09→22:18)
[2022-04-11] MEDS: FUROSEMIDE 40 MG TABLET (FP) PO SCH (10:09)
[2022-04-11] MEDS: POLYETHYLENE GLYCOL (HEALTHYLAX) 3350 17 GM PACKET PO SCH ×2 (10:09→22:33)
[2022-04-11] MEDS: FOLIC ACID 1 MG TABLET (FP) PO SCH (10:09)
[2022-04-11] MEDS: MAGNESIUM OXIDE 400 MG TABLET (FP) PO SCH (10:09)
[2022-04-11] MEDS: levETIRAcetam 500 MG TABLET (FP) PO SCH ×2 (10:09→22:18)
[2022-04-11] MEDS ORDERED: FUROSEMIDE 40 MG TABLET (FP) PO ONE (15:25)
[2022-04-11] MEDS: FINASTERIDE 5 MG TABLET (FP) PO SCH (22:18)
[2022-04-12] MEDS: DOCUSATE SODIUM 100 MG CAPSULE (FP) PO SCH ×3 (06:21→22:00)
[2022-04-12] MEDS: HEPARIN NA (PORCINE) 5,000 UNITS/ML 1ML VIAL SQ SCH ×3 (06:22→21:39)
[2022-04-12] MEDS: metFORMIN HCL 500 MG TABLET (FP) PO SCH ×2 (06:23→16:17)
[2022-04-12] MEDS: INSULIN SLIDING SCALE (NOVOLOG) 1 VIAL SQ SCH ×4 (06:23→21:38)
[2022-04-12 08:20] LABS: BASO % 0.5 % (0-2.0); EOS % 2.2 % (0-4.5); HEMATOCRIT 31.5 % (35.4-49); HEMOGLOBIN 10.6 GM/dL (11.7-16.9); LYMPH % 8.1 % (8-40); MCH 34.7 pg (25.7-33.7); MCHC 33.7 g/dl (32.0-35.9); MEAN CELL VOLUME 103.2 fl (80-96); MEAN PLT VOLUME 8.4 fl (7.5-11.1); MONO % 8.1 % (3.8-10.2); NEUT % 81.1 % (42.8-82.8); PLATELET COUNT 165 10^3/uL (134-434); RBC 3.06 M/mm3 (4.00-5.60); RDW 14.2 % (11.9-15.9); WHITE BLOOD COUNT 11.3 K/mm3 (4.0-10.0)
[2022-04-12 08:53] LABS: BILIRUBIN,TOTAL 1.8 mg/dL (0.2-1); BLOOD UREA NITROGEN 6.6 mg/dL (7-18); TOT PROT 5.8 g/dl (6.4-8.2)
[2022-04-12 08:54] LABS: CREATININE 0.8 mg/dL (0.55-1.3)
[2022-04-12 08:56] LABS: ALBUMIN 1.9 g/dl (3.4-5.0); CALCIUM 7.9 mg/dL (8.5-10.1)
[2022-04-12] MEDS: THIAMINE HCL 100 MG TABLET (FP) PO SCH (09:28)
[2022-04-12] MEDS: FOLIC ACID 1 MG TABLET (FP) PO SCH (09:28)
[2022-04-12] MEDS: levETIRAcetam 500 MG TABLET (FP) PO SCH ×2 (09:28→21:39)
[2022-04-12] MEDS: FUROSEMIDE 40 MG TABLET (FP) PO SCH (09:28)
[2022-04-12] MEDS: POLYETHYLENE GLYCOL (HEALTHYLAX) 3350 17 GM PACKET PO SCH ×2 (09:29→22:00)
[2022-04-12] MEDS: TAMSULOSIN HCL 0.4 MG CAP PO SCH ×2 (09:29→21:39)
[2022-04-12] MEDS: LACTULOSE 20 GM/30 ML UDC (FOR ORAL USE ONLY) PO SCH ×2 (09:30→22:00)
[2022-04-12] MEDS: MAGNESIUM OXIDE 400 MG TABLET (FP) PO SCH (09:31)
[2022-04-12] MEDS: SPIRONOLACTONE 25 MG TABLET PO SCH ×2 (11:43→21:39)
[2022-04-12] MEDS: FINASTERIDE 5 MG TABLET (FP) PO SCH (21:41)
[2022-04-13] MEDS: HEPARIN NA (PORCINE) 5,000 UNITS/ML 1ML VIAL SQ SCH ×3 (06:22→21:30)
[2022-04-13] MEDS: INSULIN SLIDING SCALE (NOVOLOG) 1 VIAL SQ SCH ×4 (06:22→21:29)
[2022-04-13] MEDS: DOCUSATE SODIUM 100 MG CAPSULE (FP) PO SCH ×3 (06:23→21:30)
[2022-04-13] MEDS: metFORMIN HCL 500 MG TABLET (FP) PO SCH ×2 (06:24→17:34)
[2022-04-13] MEDS: POLYETHYLENE GLYCOL (HEALTHYLAX) 3350 17 GM PACKET PO SCH ×3 (10:18→21:46)
[2022-04-13] MEDS: LACTULOSE 20 GM/30 ML UDC (FOR ORAL USE ONLY) PO SCH ×2 (10:19→21:29)
[2022-04-13] MEDS: SPIRONOLACTONE 25 MG TABLET PO SCH ×2 (10:22→21:45)
[2022-04-13] MEDS: levETIRAcetam 500 MG TABLET (FP) PO SCH ×2 (10:22→21:29)
[2022-04-13] MEDS: TAMSULOSIN HCL 0.4 MG CAP PO SCH ×2 (10:22→21:30)
[2022-04-13] MEDS: MAGNESIUM OXIDE 400 MG TABLET (FP) PO SCH (10:22)
[2022-04-13] MEDS: FOLIC ACID 1 MG TABLET (FP) PO SCH (10:22)
[2022-04-13] MEDS: THIAMINE HCL 100 MG TABLET (FP) PO SCH (10:22)
[2022-04-13] MEDS: FUROSEMIDE 40 MG TABLET (FP) PO SCH (13:43)
[2022-04-13] MEDS: FINASTERIDE 5 MG TABLET (FP) PO SCH (21:30)
[2022-04-14] MEDS: HEPARIN NA (PORCINE) 5,000 UNITS/ML 1ML VIAL SQ SCH (06:21)
[2022-04-14] MEDS: INSULIN SLIDING SCALE (NOVOLOG) 1 VIAL SQ SCH ×2 (06:21→13:14)
[2022-04-14] MEDS: metFORMIN HCL 500 MG TABLET (FP) PO SCH (06:22)
[2022-04-14] MEDS: DOCUSATE SODIUM 100 MG CAPSULE (FP) PO SCH ×2 (06:22→13:14)
[2022-04-14 07:06] VITALS: RESP 19
[2022-04-14 08:24] LABS: BASO % 0.5 % (0-2.0); EOS % 2.4 % (0-4.5); HEMATOCRIT 32.9 % (35.4-49); HEMOGLOBIN 11.1 GM/dL (11.7-16.9); LYMPH % 7.3 % (8-40); MCH 34.5 pg (25.7-33.7); MCHC 33.6 g/dl (32.0-35.9); MEAN CELL VOLUME 102.6 fl (80-96); MEAN PLT VOLUME 9.7 fl (7.5-11.1); MONO % 7.3 % (3.8-10.2); NEUT % 82.5 % (42.8-82.8); PLATELET COUNT 184 10^3/uL (134-434); RDW 14.2 % (11.9-15.9); WHITE BLOOD COUNT 13.4 K/mm3 (4.0-10.0)
[2022-04-14 08:53] LABS: CALCIUM 8.1 mg/dL (8.5-10.1)
[2022-04-14 08:54] LABS: BLOOD UREA NITROGEN 9.4 mg/dL (7-18)
[2022-04-14 08:56] LABS: CREATININE 1.1 mg/dL (0.55-1.3)
[2022-04-14 08:57] LABS: BILIRUBIN,TOTAL 2.3 mg/dL (0.2-1); TOT PROT 6.4 g/dl (6.4-8.2)
[2022-04-14] MEDS: THIAMINE HCL 100 MG TABLET (FP) PO SCH (09:32)
[2022-04-14] MEDS: levETIRAcetam 500 MG TABLET (FP) PO SCH (09:33)
[2022-04-14] MEDS: FOLIC ACID 1 MG TABLET (FP) PO SCH (09:34)
[2022-04-14] MEDS: LACTULOSE 20 GM/30 ML UDC (FOR ORAL USE ONLY) PO SCH (09:34)
[2022-04-14] MEDS: SPIRONOLACTONE 25 MG TABLET PO SCH (09:34)
[2022-04-14] MEDS: POLYETHYLENE GLYCOL (HEALTHYLAX) 3350 17 GM PACKET PO SCH (09:35)
[2022-04-14] MEDS: TAMSULOSIN HCL 0.4 MG CAP PO SCH (09:35)
[2022-04-14] MEDS: MAGNESIUM OXIDE 400 MG TABLET (FP) PO SCH (09:35)
[2022-04-14] MEDS: FUROSEMIDE 40 MG TABLET (FP) PO SCH (09:36)
[2022-04-14 15:19] VITALS: BP 98/62; PULSE 113; TEMP 98.5
== END 2022-04-14 17:42 | disposition home or self-care (01) | DRG 433 ==
LOC: JER 04:54 → INTOOBSV 14:03 → UNDOADMOB 14:03 → JERBED 14:03 → UNDOADMOB 04-03 13:43 → JERBED 04-03 13:43 → J6S 04-03 18:11 → JERBED 04-03 18:11 → J6S 04-05 16:30 → INTOOBSV 04-07 16:30 → OBSVTOIN 04-07 16:30 → J4W 04-10 20:34
PROVIDERS: ADMIT Internal Medicine; ATTEND Nurse Practitioner Family
PROC: 0W9G3ZX Drainage of Peritoneal Cavity, Percutaneous Approach, Diagnostic (ICD-10-PCS; principal; 2022-04-04)
DX: K70.31 Alcoholic cirrhosis of liver with ascites (principal); E87.1 Hypo-osmolality and hyponatremia; R33.9 Retention of urine, unspecified; K59.00 Constipation, unspecified; E11.9 Type 2 diabetes mellitus without complications; R00.0 Tachycardia, unspecified; E05.90 Thyrotoxicosis, unspecified without thyrotoxic crisis or storm; F10.10 Alcohol abuse, uncomplicated; R56.9 Unspecified convulsions; E83.42 Hypomagnesemia
CPT/HCPCS: 0241U-QW; 36415; 74176-TC; 76942-TC; 80053; 80061; 80307; 81003; 82962; 83036; 83605; 83690; 83735; 83880; 84100; 84436; 84439; 84443; 84445; 84481; 85025; 85610; 85730; 87086; 93005; 93010; 93970-TC; 97116-GP; 97162-GP; 99285-25; G0378; J1644

== ENCOUNTER 2023-09-15 04:17 | Day surgery (SDC) | payer OTHER ==
[2023-09-11 16:02] VITALS: BMI 24.2
[2023-09-15] MEDS ORDERED: BUPIVACAINE HCL/PF 0.25% (2.5MG/ML) 10 ML VIAL ONE (13:12)
[2023-09-15] MEDS ORDERED: BACITRACIN ZINC 15 GM TUBE TOPICAL OINTMENT ONE (13:12)
[2023-09-15] MEDS ORDERED: MIDAZOLAM HCL 2 MG/2 ML SINGLE DOSE VIAL ONE (15:26)
[2023-09-15] MEDS ORDERED: PROPOFOL 20 ML ONE (15:26)
[2023-09-15] MEDS ORDERED: LIDOCAINE HCL/PF 2% SDV 5ML VIAL ONE ×2 (15:31→15:35)
[2023-09-15] MEDS: ceFAZolin SODIUM 1 GM VIAL IVPB ONE (15:40)
[2023-09-15] MEDS ORDERED: KETOROLAC TROMETHAMINE 30 MG/1 ML VIAL ONE (16:04)
[2023-09-15] MEDS: BUPIVACAINE HCL/PF 2.5 MG/ML - 30 ML VIAL IJ ONE (16:07)
[2023-09-15] MEDS: BACITRACIN ZINC 15 GM TUBE TOPICAL OINTMENT TP ONE (16:09)
[2023-09-15] MEDS ORDERED: ONDANSETRON 4 MG/2 ML VIAL IVPUSH PRN (16:19)
[2023-09-15] MEDS: LACTATED RINGERS SOLUTION 1,000 ML IV SCH (16:30)
[2023-09-15] MEDS ORDERED: ACETAMINOPHEN INJECTION 100 ML IVPB ONE (16:52)
[2023-09-15] MEDS: ACETAMINOPHEN 1000 MG/100 ML BAG IVPB ONE (17:01)
[2023-09-15 19:26] VITALS: RESP 18
[2023-09-15 19:33] VITALS: BP 128/81; PULSE 70; TEMP 97.7
== END 2023-09-15 19:21 | disposition home or self-care (01) ==
LOC: JASU-SURG 04:17
PROVIDERS: ATTEND Urology
PROC: 0VTTXZZ Resection of Prepuce, External Approach (ICD-10-PCS; principal; 2023-09-15 14:30)
DX: N47.1 Phimosis (principal); N48.1 Balanitis
CPT/HCPCS: 82962; 88304-TC; 94760; J0131